=== PATIENT | male | born 1930 | race Caucasian/White ===

== ENCOUNTER 2017-06-13 17:07 | Inpatient (IN) | payer MEDICARE, OTHER ==
[2017-06-13] MEDS ORDERED: Furosemide 40 MG/4 ML VIAL IVPUSH ONE (18:29)
[2017-06-13] MEDS: Sodium Chloride 0.9% 10 ML Syringe FLUSH PRN (18:31)
[2017-06-13] MEDS: Albuterol/Ipratropium 3.0-0.5 MG/3 ML Neb Soln NEB ONE (19:05)
--- NOTE | 2017-06-13 19:10 | EDM.PDOC ---
ED HPI GENERAL MEDICAL PROBLEM - General Chief Complaint: Respiratory Problem Stated Complaint: SOB Time Seen by Provider: 06/13/17 17:27 Source of Information: Reports: Patient, EMS, Family History Limitations: Reports: Physical Impairment, Respiratory Distress - History of Present Illness INITIAL COMMENTS - FREE TEXT/NARRATIVE: 87 y.o.w.m with a h/o Asthma, CHF, came with his friend the the ed due to worsening of sob, especially in supine position. Pt take a water pills, he may have taken more fluid orally in the past few days. No CP. pt is feeling better in sitting position. He is able to talk 3 word sentences. No nausea, vomitting or other cute medical issues. Pt has a sedentary lifestyle. He is a poor historian. Onset: Gradual Onset Date: 06/12/17 Onset Time: 07:00 Duration: Hour(s):, Getting Worse, Intermittent Location: Reports: Chest Quality: Reports: Same as Previous Episode Severity: Moderate Improves with: Reports: Medication, Rest Worsens with: Reports: Movement Context: Reports: Exercise Associated Symptoms: Reports: Shortness of Breath, Weakness - Related Data Allergies Allergy/AdvReac Type Severity Reaction Status Date / Time influenza A (H1N1) virus Allergy Other Verified 06/13/17 17:27 vaccine m- [From influenza A (H1N1)] Penicillins Allergy Rash Verified 06/13/17 17:27 Home Meds: Home Meds Aspirin 325 mg PO DAILY 10/07/15 [History] Atenolol 50 mg PO DAILY 10/07/15 [History] Finasteride 5 mg PO DAILY 10/07/15 [History] Hydrochlorothiazide 25 mg PO DAILY 10/07/15 [History] Loratadine 10 mg PO DAILY 10/07/15 [History] Losartan [Cozaar] 100 mg PO DAILY 10/07/15 [History] [place]-3 Acid Ethyl Esters 1 gm PO DAILY 10/07/15 [History] Oxybutynin 5 mg PO TID PRN 10/07/15 [History] Simvastatin [Zocor] 40 mg PO BEDTIME 10/07/15 [History] Tamsulosin [Tamsulosin 24 Hr] 0.4 mg PO DAILY 10/07/15 [History] amLODIPine [Norvasc] 10 mg PO DAILY 10/07/15 [History] glipiZIDE [Glucotrol] 5 mg PO BID 10/07/15 [History] Ketorolac Tromethamine/Pf [Acuvail 0.45% Ophth Solution] 1 drop EYELF QID [History] Oxymetazoline [Afrin Original 0.05% Nasal [place]] 1 spray INH DAILY 06/13/17 [ History] diphenhydrAMINE [Benadryl] 50 mg PO DAILY 06/13/17 [History] Past Medical History Cardiovascular History: Reports: High Cholesterol, Hypertension Respiratory History: Reports: Asthma, SOB Genitourinary History: Reports: BPH, Urinary Incontinence Endocrine/Metabolic History: Reports: Diabetes, Type II Social & Family History - Family History Family Medical History: Noncontributory - Tobacco Use Smoking Status *Q: Former Smoker Used Tobacco, but Quit: Yes Month Tobacco Last Used: unknown Second Hand Smoke Exposure: No - Recreational Drug Use Recreational Drug Use: No ED ROS GENERAL - Review of Systems Review Of Systems: See Below Constitutional: Reports: Weakness HEENT: Reports: No Symptoms Respiratory: Reports: Shortness of Breath, Wheezing Cardiovascular: Reports: Dyspnea on Exertion, Orthopnea, Palpitations Endocrine: Reports: No Symptoms GI/Abdominal: Reports: No Symptoms : Reports: No Symptoms Musculoskeletal: Reports: Muscle Pain Skin: Reports: No Symptoms Neurological: Reports: No Symptoms Psychiatric: Reports: No Symptoms Hematologic/Lymphatic: Reports: No Symptoms Immunologic: Reports: No Symptoms ED EXAM, GENERAL - Physical Exam Exam: See Below Exam Limited By: Respiratory Distress General Appearance: Alert, WD/WN, Moderate Distress, Obese Eye Exam: Bilateral Eye: Normal Inspection Ears: Normal External Exam Ear Exam: Bilateral Ear: Auricle Normal Nose: Normal Inspection, Normal Mucosa Throat/Mouth: Normal Inspection, No Airway Compromise Head: Atraumatic, Normocephalic Neck: Normal Inspection, Supple, Non-Tender, Full Range of Motion Respiratory/Chest: Respiratory Distress, Decreased Breath Sounds, Crackles, Wheezing, Prolonged Expiration Cardiovascular: Normal Peripheral Pulses EKG INTERPRETATION EKG Date: 06/13/17 Time: 21:02 Rhythm: Other (ventricular paced rhythm) Rate (Beats/Min): 61 [place]: LAD-Left [place] Deviation P-Wave: Absent QRS: LBBB ST-T: Normal QT: Normal Comparison: NA - No Prior EKG Course - Vital Signs Text/Narrative:: 87 y.o.w.m with a h/o Asthma, CHF, came with his friend the the ed due to worsening of sob, especially in supine position. Pulse ox was 84% on RA. Pt take a water pills, he may have taken more fluid orally in the past few days. No CP. pt is feeling better in sitting position. He is able to talk 3 word sentences. No nausea, vomitting or other cute medical issues. Pt has a sedentary lifestyle. He is a poor historian. PE: Obese, in SOB, chronic leg edema, exp wheezes. Pulse ox 84% on RA, orthopnea. pale Imaging: CXR: CHF, kurley B lines ECG: Ventricular paced rhythm. Labs: Troponin 0.02, BNP 551, Cr. 1.5 D Dimer 552 Na 126 K 5.3, Cr 1.3 BUN 39 INR 1.09 Impression: CHF, Chronic legedema. Morbid obese, Asthma, Hyponatremia, Hyperkalemia, Orthopnea, Hpoxemaia, DNR/DNI Tx: Lasix. Duoneb, O2 by NC Reexam: Improved. D Dimer was up, mildly. ECG did not show S1Q3 T3 HR was nl. Anesthesia was only able to put a G 24 i.v. in his lefts thump. CTA was put on hold. Consultation: Cristina accepted the pt for admission to M/S tele Last Recorded V/S: Last Vital Signs Temp 36.7 C 06/13/17 20:30 Pulse 60 06/13/17 18:48 Resp 19 06/13/17 20:30 BP 108/54 L 06/13/17 20:30 Pulse Ox 94 L 06/13/17 20:30 - Orders/Labs/Meds Orders: Active Orders 24 hr Category Date Time Status RT Aerosol Therapy [RC] ASDIRECTED Care 06/13/17 19:00 Active CXR [Chest 1V Frontal] [CR] Stat Exams 06/13/17 17:18 Taken Sodium Chloride 0.9% [Saline Flush] Med 06/13/17 18:30 Active 10 ml FLUSH ASDIRECTED PRN Saline Lock Insert [OM.PC] Routine Oth 06/13/17 18:30 Ordered EKG 12 Lead [EK] Routine Ther 06/13/17 17:21 Ordered Medication Orders Enoxaparin Sodium (Lovenox) 40 mg SUBCUT DAILY COLT Ondansetron HCl (Zofran) 4 mg IV Q4H PRN PRN Reason: Nausea/Vomiting Sodium Chloride (Saline Flush) 10 ml FLUSH ASDIRECTED PRN PRN Reason: Keep Vein Open Last Admin: 06/13/17 18:31 Dose: 10 ml Labs: Laboratory Tests 06/13/17 06/13/17 06/13/17 Range/Units 18:30 18:30 18:30 WBC 13.7 H (4.5-12.0) X10-3/uL RBC 4.09 L (4.30-5.75) x10(6)uL Hgb 11.9 (11.5-15.5) g/dL Hct 36.0 (30.0-51.3) % MCV 88.0 (80-96) fL MCH 29.2 (27.7-33.6) pg MCHC 33.2 (32.2-35.4) g/dL RDW 14.1 (11.5-15.5) % Plt Count 122 L (125-369) X10(3)uL MPV 9.6 (7.4-10.4) fL Neut % (Auto) 87.2 H (46-82) % Lymph % (Auto) 5.4 L (13-37) % [place] % (Auto) 5.9 (4-12) % Eos % (Auto) 0 L (1.0-5.0) % Baso % (Auto) 1 (0-2) % Neut # (Auto) 12.0 H (1.6-8.3) # Lymph # (Auto) 0.7 (0.6-5.0) # [place] # (Auto) 0.8 (0.0-1.3) # Eos # (Auto) 0.0 (0.0-0.8) # Baso # (Auto) 0.2 (0.0-0.2) # PT (8.7-11.1) INR (0.89-1.13) D-Dimer, Quantitative (100-400) ng/mL Sodium 126 L D (135-145) mmol/L Potassium 5.3 D (3.5-5.3) mmol/L Chloride 95 L D (100-110) mmol/L Carbon Dioxide 21 L (23-29) mmol/L BUN 39 H D (8-23) mg/dL Creatinine 1.3 (0.6-1.3) mg/dL Est Cr Clr Drug Dosing 36.72 mL/min Estimated GFR (MDRD) 52 L (>60) BUN/Creatinine Ratio 30.0 H (9-20) Glucose 303 H (80-116) mg/dL Calcium 8.4 L (8.6-10.2) mg/dL Troponin I (0.02-0.06) NG/ML B-Natriuretic Peptide 551 H (0-100) pg/mL 06/13/17 06/13/17 06/13/17 Range/Units 18:30 18:30 19:50 WBC (4.5-12.0) X10-3/uL RBC (4.30-5.75) x10(6)uL Hgb (11.5-15.5) g/dL Hct (30.0-51.3) % MCV (80-96) fL MCH (27.7-33.6) pg MCHC (32.2-35.4) g/dL RDW (11.5-15.5) % Plt Count (125-369) X10(3)uL MPV (7.4-10.4) fL Neut % (Auto) (46-82) % Lymph % (Auto) (13-37) % [place] % (Auto) (4-12) % Eos % (Auto) (1.0-5.0) % Baso % (Auto) (0-2) % Neut # (Auto) (1.6-8.3) # Lymph # (Auto) (0.6-5.0) # [place] # (Auto) (0.0-1.3) # Eos # (Auto) (0.0-0.8) # Baso # (Auto) (0.0-0.2) # PT 11.0 (8.7-11.1) INR 1.09 (0.89-1.13) D-Dimer, Quantitative 532 H (100-400) ng/mL Sodium (135-145) mmol/L Potassium (3.5-5.3) mmol/L Chloride (100-110) mmol/L Carbon Dioxide (23-29) mmol/L BUN (8-23) mg/dL Creatinine (0.6-1.3) mg/dL Est Cr Clr Drug Dosing mL/min Estimated GFR (MDRD) (>60) BUN/Creatinine Ratio (9-20) Glucose (80-116) mg/dL Calcium (8.6-10.2) mg/dL Troponin I 0.02 (0.02-0.06) NG/ML B-Natriuretic Peptide (0-100) pg/mL Meds: Medications Generic Name Dose Route Start Last Admin Trade Name Freq PRN Reason Stop Dose Admin Enoxaparin Sodium 40 mg 06/14/17 09:00 Lovenox SUBCUT DAILY COLT Ondansetron HCl 4 mg 06/13/17 19:54 Zofran IV Q4H PRN Nausea/Vomiting Sodium Chloride 10 ml 06/13/17 18:30 06/13/17 18:31 Saline Flush FLUSH 10 ml ASDIRECTED PRN Administration Keep Vein Open Discontinued Medications Generic Name Dose Route Start Last Admin Trade Name Freq PRN Reason Stop Dose Admin Albuterol/Ipratropium 3 ml 06/13/17 18:59 06/13/17 19:05 Duoneb 3.0-0.5 Mg/3 Ml NEB 06/13/17 19:00 3 ml ONETIME ONE Administration Furosemide 40 mg 06/13/17 18:29 06/13/17 18:34 Lasix IVPUSH 06/13/17 18:30 40 mg NOW ONE Administration Departure - Departure Time of Disposition: 21:03 Disposition: Refer to Observation Condition: Fair Clinical Impression: Asthma attack CHF (congestive heart failure) Qualifiers: Congestive heart failure type: combined Congestive heart failure chronicity: unspecified congestive heart failure chronicity Qualified Code(s): I50.40 - Unspecified combined systolic (congestive) and diastolic (congestive) heart failure - Discharge Information - My Orders Last 24 Hours: My Active Orders 06/13/17 17:18 CXR [Chest 1V Frontal] [CR] Stat 06/13/17 17:21 EKG 12 Lead [EK] Routine 06/13/17 18:30 Sodium Chloride 0.9% [Saline Flush] 10 ml FLUSH ASDIRECTED PRN Saline Lock Insert [OM.PC] Routine 06/13/17 19:00 RT Aerosol Therapy [RC] ASDIRECTED - Assessment/Plan Last 24 Hours: My Active Orders 06/13/17 17:18 CXR [Chest 1V Frontal] [CR] Stat 06/13/17 17:21 EKG 12 Lead [EK] Routine 06/13/17 18:30 Sodium Chloride 0.9% [Saline Flush] 10 ml FLUSH ASDIRECTED PRN Saline Lock Insert [OM.PC] Routine 06/13/17 19:00 RT Aerosol Therapy [RC] ASDIRECTED
--- NOTE | 2017-06-14 08:52 | PCM.HP ---
H&P History of Present Illness - General Date of Service: 06/14/17 Admit Problem/Dx: Admission Diagnosis/Problem Admission Diagnosis/Problem CHF, Congestive heart failure Source of Information: Patient, Family History Limitations: Reports: No Limitations - History of Present Illness Initial Comments - Free Text/Narative: 87-year-old pleasant who presented to the ER last night with shortness of breath for 2 days. The shortness of breath was insidious in onset, progressively getting worse, worsened by ambulation. Associated PND, and orthopnea. He said that he has a history of asthma which has been well- controlled and felt that it was getting worse. He also has a pacemaker, hypertension and type 2 diabetes previously stable. He goes [facility]. He denied chest pain fever chills or production of sputum. He further complained of leg swelling that is bilateral of the last few days Denies Pain Score (Numeric/FACES): 0 - Related Data Allergies/Adverse Reactions: Allergies Allergy/AdvReac Type Severity Reaction Status Date / Time influenza A (H1N1) virus Allergy Other Verified 06/13/17 17:27 vaccine m- [From influenza A (H1N1)] Penicillins Allergy Rash Verified 06/13/17 17:27 Home Medications: Home Meds Aspirin 325 mg PO DAILY 10/07/15 [History] Atenolol 50 mg PO DAILY 10/07/15 [History] Finasteride 5 mg PO DAILY 10/07/15 [History] Hydrochlorothiazide 25 mg PO DAILY 10/07/15 [History] Loratadine 10 mg PO DAILY 10/07/15 [History] Losartan [Cozaar] 100 mg PO DAILY 10/07/15 [History] [place]-3 Acid Ethyl Esters 1 gm PO DAILY 10/07/15 [History] Oxybutynin 5 mg PO TID PRN 10/07/15 [History] Simvastatin [Zocor] 40 mg PO BEDTIME 10/07/15 [History] Tamsulosin [Tamsulosin 24 Hr] 0.4 mg PO DAILY 10/07/15 [History] amLODIPine [Norvasc] 10 mg PO DAILY 10/07/15 [History] glipiZIDE [Glucotrol] 5 mg PO BID 10/07/15 [History] Ketorolac Tromethamine/Pf [Acuvail 0.45% Ophth Solution] 1 drop EYELF QID [History] Oxymetazoline [Afrin Original 0.05% Nasal [place]] 1 spray INH DAILY 06/13/17 [ History] diphenhydrAMINE [Benadryl] 50 mg PO DAILY 06/13/17 [History] Past Medical History HEENT History: Reports: Cataract, Impaired Vision Other HEENT History: wears glasses 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 Cardiovascular History: Reports: High Cholesterol, Hypertension Respiratory History: Reports: Asthma, SOB Genitourinary History: Reports: BPH, Urinary Incontinence Endocrine/Metabolic History: Reports: Diabetes, Type II - Infectious Disease History Infectious Disease History: Reports: Chicken Pox, Measles, Mumps - Past Surgical History Cardiovascular Surgical History: Reports: Pacer GI Surgical History: Reports: Hernia Repair/Other Social & Family History - Family History Family Medical History: Noncontributory - Tobacco Use Smoking Status *Q: Former Smoker Years of Tobacco use: 1 Used Tobacco, but Quit: Yes Month Tobacco Last Used: unknown Second Hand Smoke Exposure: No - Caffeine Use Caffeine Use: Reports: Coffee Caffeine Use Comment: 1-2 cups coffee in am - Recreational Drug Use Recreational Drug Use: No H&P Review of Systems - Review of Systems: Review Of Systems: ROS reveals no pertinent complaints other than HPI. Exam - Exam Exam: See Below - Vital Signs Vital Signs: Last Vital Signs Temp 98 F 06/14/17 01:30 Pulse 60 06/13/17 18:48 Resp 19 06/14/17 01:30 BP 93/39 L 06/14/17 01:30 Pulse Ox 93 L 06/14/17 01:30 Weight: 120.293 kg - Exam Quality Assessment: Supplemental Oxygen General: Alert, Oriented, 4 HEENT: PERRLA, Hearing Intact, Mucosa Moist & [place], Nares Patent, Normal Nasal Septum, Posterior Pharynx Clear, Conjunctiva Clear, EOMI, EACs Clear, TMs Clear Neck: Supple, Trachea Midline, 2 Lungs: Crackles, Rhonchi Cardiovascular: Irregular Rhythm GI/Abdominal Exam: Normal Bowel Sounds, Soft, Non-Tender, No Organomegaly, No Distention, No Abnormal Bruit, No Mass, Pelvis Stable (Male) Exam: Deferred Rectal (Males) Exam: Deferred Back Exam: Normal Inspection, Full Range of Motion, NT Extremities: Pedal Edema. No: No Pedal Edema Skin: Warm, Dry, Intact Neurological: Cranial Nerves Intact, Reflexes Equal Bilateral Neuro Extensive - Mental Status: Alert, Oriented x3, Normal Mood/Affect, Normal Cognition Neuro Extensive - Motor, Sensory, Reflexes: CN II-XII Intact, Normal Gait, Normal Reflexes Psychiatric: Alert, Normal Affect, Normal Mood - Patient Data Lab Results Last 24 hrs: Laboratory Results - last 24 hr 06/14/17 06/14/17 Range/Units 06:47 06:47 Troponin I 0.02 (0.02-0.06) NG/ML B-Natriuretic Peptide 577 H (0-100) pg/mL Result Diagrams: 06/13/17 18:30 06/13/17 18:30 Imaging Impressions Last 24 hrs: CXR-CHF EKG INTERPRETATION EKG Date: 06/13/17 Comparison: NA - No Prior EKG *Q Meaningful Use (ADM) - VTE *Q VTE Criteria *Q: - Stroke *Q Stroke Criteria *Q: - AMI *Q AMI Criteria *Q: - Problem List (1) CHF (congestive heart failure) SNOMED Code(s): 19799450 ICD Code: I50.9 - HEART FAILURE, UNSPECIFIED Status: Acute Current Visit : Yes Qualifiers: Congestive heart failure type: combined Congestive heart failure chronicity : unspecified congestive heart failure chronicity Qualified Code(s): I50.40 - Unspecified combined systolic (congestive) and diastolic (congestive) heart failure (2) HTN (hypertension) SNOMED Code(s): 47471845 ICD Code: I10 - ESSENTIAL (PRIMARY) HYPERTENSION Status: Acute Current Visit: Yes Qualifiers: Hypertension type: essential hypertension Qualified Code(s): I10 - Essential (primary) hypertension (3) Diabetes type 2, controlled SNOMED Code(s): 72871422 ICD Code: E11.9 - TYPE 2 DIABETES MELLITUS WITHOUT COMPLICATIONS Status: Acute Current Visit: Yes Qualifiers: Diabetes mellitus complication status: with unspecified complications Diabetes mellitus terminal block assembler insulin use: unspecified terminal block assembler insulin use status Qualified Code(s): E11.8 - Type 2 diabetes mellitus with unspecified complications (4) Obesity SNOMED Code(s): 336381309 ICD Code: E66.9 - OBESITY, UNSPECIFIED Status: Chronic Current Visit: Yes Qualifiers: Obesity type: due to excess calories (5) Hyponatremia SNOMED Code(s): 70758469 ICD Code: E87.1 - HYPO-OSMOLALITY AND HYPONATREMIA Status: Acute Current Visit: Yes (6) History of permanent cardiac pacemaker placement SNOMED Code(s): 843133812 ICD Code: Z95.0 - PRESENCE OF CARDIAC PACEMAKER Status: Acute Current Visit: Yes (7) Asthma SNOMED Code(s): 240940885 ICD Code: J45.909 - UNSPECIFIED ASTHMA, UNCOMPLICATED Status: Acute Current Visit: Yes Qualifiers: Asthma complication type: uncomplicated (8) Palliative care status SNOMED Code(s): 689797188 ICD Code: Z51.5 - ENCOUNTER FOR PALLIATIVE CARE Status: Acute Current Visit: Yes Problem List Initiated/Reviewed/Updated: Yes Orders Last 24hrs: Active Orders 24 hr Category Date Time Status Oxygen Therapy Adult [Oxygen Therapy] [RC] ASDIRECTED Care 06/13/17 20:30 Active Telemetry Monitoring [Cardiac Monitoring] [] 08,16,00 Care 06/13/17 20:19 Active Medication Orders Enoxaparin Sodium (Lovenox) 30 mg SUBCUT DAILY COLT Ondansetron HCl (Zofran) 4 mg IV Q4H PRN PRN Reason: Nausea/Vomiting Sodium Chloride (Saline Flush) 10 ml FLUSH ASDIRECTED PRN PRN Reason: Keep Vein Open Last Admin: 06/13/17 18:31 Dose: 10 ml Assessment/Plan Comment:: Andi has CHF. He states x-ray shows bilateral interstitial infiltrates, suggestive of pulmonary edema. I will continue with IV Lasix twice a day, watching his blood pressure. I'll transfer him to inpatient care but discontinue telemetry. I've recommended a strict input and output and daily weights. I will also consulted physical and occupational therapy for strengthening, ADLs, and discharge planning. I will withheld his blood pressure medications because of his low blood pressure. Also of the quested records from the [facility] to see his previous history in detail.
[2017-06-14] MEDS ORDERED: Oxybutynin 5 MG Tab PO PRN ×2 (08:55→11:15)
[2017-06-14] MEDS ORDERED: Furosemide 20 MG Tab PO SCH (09:00)
[2017-06-14] MEDS ORDERED: Oxymetazoline 0.05% Nasal Spray 15 ML Bottle NASBOTH PRN (09:00)
--- NOTE | 2017-06-14 11:26 | CR ---
INDICATION: Short of breath. CHEST: An AP upright view of the chest was obtained 06/13/2017 and compared with 10/07/2015, revealing very poor inspiration which markedly emphasizes markings. It is impossible to exclude bibasilar pneumonia with this appearance. A full inspiration examination, either AP or preferably, PA, preferably with a lateral view, should be of further diagnostic benefit. Bipolar pacemaker leads are noted in place now, with the heart appearing enlarged, but not well seen. Overlying EKG leads are noted. Lungs appear to be hyperaerated. IMPRESSION: Inadequate examination. Need full inspiration examination, preferably with a lateral view for further evaluation when clinically possible. MTDD
[2017-06-14] MEDS: Finasteride 5 MG Tab PO SCH (12:01)
[2017-06-14] MEDS: Loratadine 10 MG Tab PO SCH (12:01)
[2017-06-14] MEDS: Enoxaparin 30 MG/0.3 ML Syringe SUBCUT SCH (12:01)
[2017-06-14] MEDS: glipiZIDE 5 MG Tab PO SCH ×2 (12:01→17:30)
[2017-06-14] MEDS: Spironolactone 25 MG Tab PO SCH ×2 (12:02→20:25)
[2017-06-14] MEDS: Furosemide 20 MG/2 ML VIAL IVPUSH SCH ×2 (12:02→16:18)
[2017-06-14] MEDS: Aspirin 81 MG Tab.EC PO SCH (12:02)
[2017-06-14] MEDS: Fish Oil/Omega-3 Fatty Acids 1 Gm Cap PO SCH (12:02)
[2017-06-14] MEDS: Oxybutynin 5 MG Tab PO SCH ×2 (12:02→20:25)
[2017-06-14] MEDS: KETOROLAC 0.4% EYELF SCH ×3 (13:33→20:25)
[2017-06-14] MEDS: Tamsulosin 0.4 MG Cap.ER PO SCH (19:09)
[2017-06-14] MEDS: Simvastatin 40 MG Tab PO SCH (20:25)
[2017-06-15] MEDS: glipiZIDE 5 MG Tab PO SCH ×2 (08:19→17:18)
[2017-06-15] MEDS: Spironolactone 25 MG Tab PO SCH ×2 (08:20→20:00)
[2017-06-15] MEDS: Furosemide 20 MG/2 ML VIAL IVPUSH SCH ×2 (08:20→14:43)
[2017-06-15] MEDS: Loratadine 10 MG Tab PO SCH (08:20)
[2017-06-15] MEDS: Sodium Chloride 0.9% 10 ML Syringe FLUSH PRN ×2 (08:20→14:43)
[2017-06-15] MEDS: Fish Oil/Omega-3 Fatty Acids 1 Gm Cap PO SCH (08:21)
[2017-06-15] MEDS: KETOROLAC 0.4% EYELF SCH ×4 (08:21→20:01)
[2017-06-15] MEDS: Aspirin 81 MG Tab.EC PO SCH (08:21)
[2017-06-15] MEDS: Enoxaparin 30 MG/0.3 ML Syringe SUBCUT SCH (08:22)
[2017-06-15] MEDS: Finasteride 5 MG Tab PO SCH (08:22)
[2017-06-15] MEDS: Oxybutynin 5 MG Tab PO SCH ×2 (08:22→20:00)
--- NOTE | 2017-06-15 09:21 | PCM.PN ---
- General Info Date of Service: 06/15/17 Admission Dx/Problem (Free Text): Admission Diagnosis/Problem Admission Diagnosis/Problem CHF, Congestive heart failure Subjective Update: Overnight patient has somewhat improved. He still gets short of breath on mild ambulation and on speaking. He denies chest pain no fever or chills no headache no cough. - Review of Systems General: Reports: No Symptoms HEENT: Reports: No Symptoms Pulmonary: Reports: Shortness of Breath. Denies: Pleuritic Chest Pain, Cough, Sputum Cardiovascular: Reports: Dyspnea on Exertion, Edema Gastrointestinal: Reports: No Symptoms Genitourinary: Reports: No Symptoms - Patient Data Vitals - Most Recent: Last Vital Signs Temp 98 F 06/15/17 04:30 Pulse 88 06/15/17 07:22 Resp 20 06/15/17 04:30 BP 137/54 L 06/15/17 04:30 Pulse Ox 95 06/15/17 07:22 Weight - Most Recent: 119.567 kg I&O - Last 24 Hours: Intake & Output 06/14/17 06/15/17 06/15/17 22:59 06:59 14:59 Intake Total 980 300 Output Total 1050 675 Balance -70 -375 Lab Results Last 24 Hours: Laboratory Results - last 24 hr 06/14/17 06/15/17 06/15/17 Range/Units 17:03 06:55 06:55 WBC 10.8 (4.5-12.0) X10-3/uL RBC 4.37 (4.30-5.75) x10(6)uL Hgb 12.9 (11.5-15.5) g/dL Hct 37.9 (30.0-51.3) % MCV 86.8 (80-96) fL MCH 29.5 (27.7-33.6) pg MCHC 34.0 (32.2-35.4) g/dL RDW 13.6 (11.5-15.5) % Plt Count 195 (125-369) X10(3)uL MPV 8.2 (7.4-10.4) fL Neut % (Auto) 67.1 (46-82) % Lymph % (Auto) 16.9 (13-37) % [place] % (Auto) 10.7 (4-12) % Eos % (Auto) 5 (1.0-5.0) % Baso % (Auto) 0 (0-2) % Neut # (Auto) 7.3 (1.6-8.3) # Lymph # (Auto) 1.8 (0.6-5.0) # [place] # (Auto) 1.2 (0.0-1.3) # Eos # (Auto) 0.5 (0.0-0.8) # Baso # (Auto) 0.0 (0.0-0.2) # Sodium 129 L (135-145) mmol/L Potassium 3.8 D (3.5-5.3) mmol/L Chloride 95 L (100-110) mmol/L Carbon Dioxide 24 (23-29) mmol/L BUN 48 H (8-23) mg/dL Creatinine 1.5 H (0.6-1.3) mg/dL Est Cr Clr Drug Dosing 31.83 mL/min Estimated GFR (MDRD) 44 L (>60) BUN/Creatinine Ratio 32.0 H (9-20) Glucose 149 H D (80-116) mg/dL POC Glucose 149 H (80-116) mg/dL Calcium 8.6 (8.6-10.2) mg/dL Phosphorus 3.5 (3.0-4.6) mg/dL Magnesium 1.9 (1.8-2.5) mg/dL Total Bilirubin 0.8 (0.1-1.3) mg/dL AST 21 (5-27) IU/L ALT 21 (14-26) IU/L Alkaline Phosphatase 83 (56-112) IU/L Total Protein 6.9 (6.0-8.0) g/dL Albumin 3.0 L (3.2-4.6) g/dL Globulin 3.9 g/dL Albumin/Globulin Ratio 0.8 Med Orders - Current: Current Medications Albuterol/Ipratropium (Duoneb 3.0-0.5 Mg/3 Ml) 3 ml NEB QIDRT [facility] Aspirin (Halfprin) 81 mg PO DAILY [facility] Last Admin: 06/15/17 08:21 Dose: 81 mg Enoxaparin Sodium (Lovenox) 30 mg SUBCUT DAILY [facility] Last Admin: 06/15/17 08:22 Dose: 30 mg Finasteride (Proscar) 5 mg PO DAILY [facility] Last Admin: 06/15/17 08:22 Dose: 5 mg Fish Oil (Fish Oil) 1 gm PO DAILY [facility] Last Admin: 06/15/17 08:21 Dose: 1 gm Furosemide (Lasix) 20 mg IVPUSH BIDDIURETIC [facility] Last Admin: 06/15/17 08:20 Dose: 20 mg Glipizide (Glucotrol) 5 mg PO BIDMEALS [facility] Last Admin: 06/15/17 08:19 Dose: 5 mg Loratadine (Claritin) 10 mg PO DAILY [facility] Last Admin: 06/15/17 08:20 Dose: 10 mg Ketorolac 0.4% Ophthalmic Solution *Ptom 1 drop EYELF QID [facility] Last Admin: 06/15/17 08:21 Dose: 1 drop Ondansetron HCl (Zofran) 4 mg IV Q4H PRN PRN Reason: Nausea/Vomiting Oxybutynin Chloride (Oxybutynin) 5 mg PO BID [facility] Last Admin: 06/15/17 08:22 Dose: 5 mg Oxybutynin Chloride (Oxybutynin) 5 mg PO DAILY PRN PRN Reason: BLADDER SPASMS Oxymetazoline HCl (Afrin Original 0.05% Nasal [place]) 0 ml NASBOTH Q12H PRN PRN Reason: CONGESTION Potassium Chloride (Klor-Con M20) 20 meq PO BEDTIME [facility] Simvastatin (Zocor) 40 mg PO BEDTIME [facility] Last Admin: 06/14/17 20:25 Dose: 40 mg Sodium Chloride (Saline Flush) 10 ml FLUSH ASDIRECTED PRN PRN Reason: Keep Vein Open Last Admin: 06/15/17 08:20 Dose: 10 ml Spironolactone (Aldactone) 25 mg PO BID [facility] Tamsulosin HCl (Flomax) 0.4 mg PO PCDINNER [facility] Last Admin: 06/14/17 19:09 Dose: 0.4 mg Discontinued Medications Albuterol/Ipratropium (Duoneb 3.0-0.5 Mg/3 Ml) 3 ml NEB ONETIME ONE Stop: 06/13/17 19:00 Last Admin: 06/13/17 19:05 Dose: 3 ml Furosemide (Lasix) 40 mg IVPUSH NOW ONE Stop: 06/13/17 18:30 Last Admin: 06/13/17 18:34 Dose: 40 mg Furosemide (Lasix) 20 mg PO BIDDIURETIC [facility] Last Admin: 06/14/17 12:14 Dose: Not Given Oxybutynin Chloride (Oxybutynin) 5 mg PO TID PRN PRN Reason: BLADDER Spasms Spironolactone (Aldactone) 12.5 mg PO BID [facility] Last Admin: 06/15/17 08:20 Dose: 12.5 mg Spironolactone (Aldactone) 25 mg PO DAILY COLT - Exam Quality Assessment: No: Supplemental Oxygen General: Alert HEENT: Pupils Equal, Pupils Reactive, EOMI, Mucous Membr. Moist/[place] Neck: Supple Lungs: Rales, Rhonchi, Wheezing Cardiovascular: Regular Rate, Regular Rhythm Extremities: Pedal Edema - Problem List & Annotations (1) CHF (congestive heart failure) SNOMED Code(s): 66516941 Code(s): I50.9 - HEART FAILURE, UNSPECIFIED Status: Acute Current Visit: Yes Qualifiers: Congestive heart failure type: combined Congestive heart failure chronicity : unspecified congestive heart failure chronicity Qualified Code(s): I50.40 - Unspecified combined systolic (congestive) and diastolic (congestive) heart failure (2) HTN (hypertension) SNOMED Code(s): 29418736 Code(s): I10 - ESSENTIAL (PRIMARY) HYPERTENSION Status: Acute Current Visit: Yes Qualifiers: Hypertension type: essential hypertension Qualified Code(s): I10 - Essential (primary) hypertension (3) Diabetes type 2, controlled SNOMED Code(s): 94984047 Code(s): E11.9 - TYPE 2 DIABETES MELLITUS WITHOUT COMPLICATIONS Status: Acute Current Visit: Yes Qualifiers: Diabetes mellitus complication status: with unspecified complications Diabetes mellitus care home insulin use: unspecified terminal operations supervisor insulin use status Qualified Code(s): E11.8 - Type 2 diabetes mellitus with unspecified complications (4) Obesity SNOMED Code(s): 162272632 Code(s): E66.9 - OBESITY, UNSPECIFIED Status: Chronic Current Visit: Yes Qualifiers: Obesity type: due to excess calories (5) Hyponatremia SNOMED Code(s): 22799249 Code(s): E87.1 - HYPO-OSMOLALITY AND HYPONATREMIA Status: Acute Current Visit: Yes (6) History of permanent cardiac pacemaker placement SNOMED Code(s): 232524115 Code(s): Z95.0 - PRESENCE OF CARDIAC PACEMAKER Status: Acute Current Visit: Yes (7) Asthma SNOMED Code(s): 082227161 Code(s): J45.909 - UNSPECIFIED ASTHMA, UNCOMPLICATED Status: Acute Current Visit: Yes Qualifiers: Asthma complication type: uncomplicated (8) Palliative care status SNOMED Code(s): 454755505 Code(s): Z51.5 - ENCOUNTER FOR PALLIATIVE CARE Status: Acute Current Visit: Yes - Problem List Review Problem List Initiated/Reviewed/Updated: Yes - My Orders Last 24 Hours: My Active Orders 06/14/17 09:15 Furosemide [Lasix] 20 mg IVPUSH BIDDIURETIC 06/14/17 11:00 IS (RT) [RT Incentive Spirometry] [RC] ASDIRECTED 06/14/17 11:15 Oxybutynin 5 mg PO BID Oxybutynin 5 mg PO DAILY PRN 06/15/17 09:11 RT Aerosol Therapy [RC] ASDIRECTED CXR [Chest 2V] [CR] Routine 06/15/17 09:15 Albuterol/Ipratropium [DuoNeb 3.0-0.5 MG/3 ML] 3 ml NEB QIDRT 06/15/17 09:30 Potassium Chloride [Klor-Con M20] 20 meq PO BEDTIME Spironolactone [Aldactone] 25 mg PO BID Spironolactone [Aldactone] 25 mg PO DAILY 06/16/17 05:11 B-TYPE NATRIURETIC PEPTIDE,BNP [CHEM] AM BASIC METABOLIC PANEL,BMP [CHEM] AM - Plan Plan:: I ordered for repeat chest x-ray PA and lateral. Continued IV Lasix, increase the dose of Aldactone to 50 mg in 2 divided doses daily. I will replace potassium in anticipation of hypokalemia do to digresses. His weight has only gone down to a 3 pounds. I'll give him a one-time dose of Zaroxolyn. I will also started DuoNeb as needed to help open up his lungs. A 2-D echocardiogram will be ordered to be done until tomorrow. Once is off oxygen I believe that we can send him home.
[2017-06-15] MEDS ORDERED: Spironolactone 25 MG Tab PO SCH (09:30)
[2017-06-15] MEDS ORDERED: Spironolactone 25 MG Tab PO ONE (09:30)
[2017-06-15] MEDS: Albuterol/Ipratropium 3.0-0.5 MG/3 ML Neb Soln NEB SCH ×4 (10:17→20:01)
--- NOTE | 2017-06-15 11:46 | CR ---
INDICATION: Short of breath. CHEST: AP and lateral views of the chest 06/15/2017 were compared with 2016 AP, and PA and lateral from 10/07/2015. Pacemaker leads appear unchanged in position. The heart size is difficult to evaluate due to what appears to be a relatively poor inspiration, but does appear enlarged, possibly with left ventricular enlargement. Bridging hyperostotic changes are noted in the mid to lower thoracic spine. Diminished bone density is suggested, which may be on the basis of osteomalacia or osteoporosis and should be correlated clinically. Calcifications are noted in the arch of the aorta and descending aorta. Upper lung field pulmonary vasculature appears slightly prominent with interstitial markings also prominent, suggesting a mild degree of CHF and interstitial lung edema - correlate clinically, as other cause of pulmonary vascular congestion cannot be excluded. A definite active infiltrate or effusion was not identified. With the poor inspiration, it is impossible to exclude minimal patchy bronchopneumonia at the lung bases, however. IMPRESSION: Slight prominence of upper lung field pulmonary vasculature and interstitial markings raise question of a mild degree of CHF and interstitial lung edema - correlate clinically. MTDD
[2017-06-15] MEDS: Potassium Chloride 20 MEQ Tab.ER PO SCH (14:41)
[2017-06-15] MEDS: Tamsulosin 0.4 MG Cap.ER PO SCH (19:58)
[2017-06-15] MEDS: Simvastatin 40 MG Tab PO SCH (20:00)
[2017-06-16] MEDS: Albuterol/Ipratropium 3.0-0.5 MG/3 ML Neb Soln NEB SCH ×4 (07:23→20:40)
--- NOTE | 2017-06-16 08:44 | PCM.PN ---
- General Info Date of Service: 06/16/17 Admission Dx/Problem (Free Text): Admission Diagnosis/Problem Admission Diagnosis/Problem CHF, Congestive heart failure Subjective Update: Patient has improved in terms of shortness of breath and was able to walk 300 feet independently yesterday is off oxygenation. Wants to go home . - Review of Systems General: Reports: No Symptoms HEENT: Reports: No Symptoms Pulmonary: Reports: Shortness of Breath Cardiovascular: Reports: No Symptoms, Dyspnea on Exertion Gastrointestinal: Reports: No Symptoms Genitourinary: Reports: No Symptoms - Patient Data Vitals - Most Recent: Last Vital Signs Temp 97.6 F 06/16/17 00:00 Pulse 70 06/16/17 07:29 Resp 18 06/16/17 00:00 BP 115/55 L 06/16/17 00:00 Pulse Ox 92 L 06/16/17 07:30 Weight - Most Recent: 120.383 kg I&O - Last 24 Hours: Intake & Output 06/15/17 06/16/17 06/16/17 22:59 06:59 14:59 Intake Total 800 125 Output Total 400 Balance 400 125 Lab Results Last 24 Hours: Laboratory Results - last 24 hr 06/16/17 06/16/17 Range/Units 07:00 07:00 Sodium 130 L (135-145) mmol/L Potassium 4.3 (3.5-5.3) mmol/L Chloride 97 L (100-110) mmol/L Carbon Dioxide 21 L (23-29) mmol/L BUN 50 H (8-23) mg/dL Creatinine 1.7 H (0.6-1.3) mg/dL Est Cr Clr Drug Dosing 28.08 mL/min Estimated GFR (MDRD) 38 L (>60) BUN/Creatinine Ratio 29.4 H (9-20) Glucose 222 H (80-116) mg/dL Calcium 8.7 (8.6-10.2) mg/dL B-Natriuretic Peptide 195 H (0-100) pg/mL Med Orders - Current: Current Medications Albuterol/Ipratropium (Duoneb 3.0-0.5 Mg/3 Ml) 3 ml NEB QIDRT [facility] Last Admin: 06/16/17 07:23 Dose: 3 ml Aspirin (Halfprin) 81 mg PO DAILY [facility] Last Admin: 06/15/17 08:21 Dose: 81 mg Enoxaparin Sodium (Lovenox) 30 mg SUBCUT DAILY [facility] Last Admin: 06/15/17 08:22 Dose: 30 mg Finasteride (Proscar) 5 mg PO DAILY [facility] Last Admin: 06/15/17 08:22 Dose: 5 mg Fish Oil (Fish Oil) 1 gm PO DAILY [facility] Last Admin: 06/15/17 08:21 Dose: 1 gm Furosemide (Lasix) 20 mg IVPUSH BIDDIURETIC [facility] Last Admin: 06/15/17 14:43 Dose: 20 mg Glipizide (Glucotrol) 5 mg PO BIDMEALS [facility] Last Admin: 06/15/17 17:18 Dose: 5 mg Loratadine (Claritin) 10 mg PO DAILY [facility] Last Admin: 06/15/17 08:20 Dose: 10 mg Ketorolac 0.4% Ophthalmic Solution *Ptom 1 drop EYELF QID [facility] Last Admin: 06/15/17 20:01 Dose: 1 drop Ondansetron HCl (Zofran) 4 mg IV Q4H PRN PRN Reason: Nausea/Vomiting Oxybutynin Chloride (Oxybutynin) 5 mg PO BID [facility] Last Admin: 06/15/17 20:00 Dose: 5 mg Oxybutynin Chloride (Oxybutynin) 5 mg PO DAILY PRN PRN Reason: BLADDER SPASMS Oxymetazoline HCl (Afrin Original 0.05% Nasal [place]) 0 ml NASBOTH Q12H PRN PRN Reason: CONGESTION Potassium Chloride (Klor-Con M20) 20 meq PO BEDTIME [facility] Last Admin: 06/15/17 14:41 Dose: 20 meq Simvastatin (Zocor) 40 mg PO BEDTIME [facility] Last Admin: 06/15/17 20:00 Dose: 40 mg Sodium Chloride (Saline Flush) 10 ml FLUSH ASDIRECTED PRN PRN Reason: Keep Vein Open Last Admin: 06/15/17 14:43 Dose: 10 ml Spironolactone (Aldactone) 25 mg PO BID [facility] Last Admin: 06/15/17 20:00 Dose: 25 mg Tamsulosin HCl (Flomax) 0.4 mg PO PCDINNER [facility] Last Admin: 06/15/17 19:58 Dose: 0.4 mg Discontinued Medications Albuterol/Ipratropium (Duoneb 3.0-0.5 Mg/3 Ml) 3 ml NEB ONETIME ONE Stop: 06/13/17 19:00 Last Admin: 06/13/17 19:05 Dose: 3 ml Furosemide (Lasix) 40 mg IVPUSH NOW ONE Stop: 06/13/17 18:30 Last Admin: 06/13/17 18:34 Dose: 40 mg Furosemide (Lasix) 20 mg PO BIDDIURETIC COLT Last Admin: 06/14/17 12:14 Dose: Not Given Oxybutynin Chloride (Oxybutynin) 5 mg PO TID PRN PRN Reason: BLADDER Spasms Spironolactone (Aldactone) 12.5 mg PO BID COLT Last Admin: 06/15/17 08:20 Dose: 12.5 mg Spironolactone (Aldactone) 25 mg PO DAILY COLT Spironolactone (Aldactone) 12.5 mg PO ONETIME ONE Stop: 06/15/17 09:31 Last Admin: 06/15/17 14:37 Dose: 12.5 mg - Exam Quality Assessment: No: Supplemental Oxygen General: Alert, Oriented HEENT: Pupils Equal Neck: Supple Lungs: Clear to Auscultation Cardiovascular: Regular Rate Psy/Mental Status: Alert, Normal Affect - Problem List & Annotations (1) CHF (congestive heart failure) SNOMED Code(s): 53246022 Code(s): I50.9 - HEART FAILURE, UNSPECIFIED Status: Acute Current Visit: Yes Qualifiers: Congestive heart failure type: combined Congestive heart failure chronicity : unspecified congestive heart failure chronicity Qualified Code(s): I50.40 - Unspecified combined systolic (congestive) and diastolic (congestive) heart failure (2) HTN (hypertension) SNOMED Code(s): 84867072 Code(s): I10 - ESSENTIAL (PRIMARY) HYPERTENSION Status: Acute Current Visit: Yes Qualifiers: Hypertension type: essential hypertension Qualified Code(s): I10 - Essential (primary) hypertension (3) Diabetes type 2, controlled SNOMED Code(s): 21348301 Code(s): E11.9 - TYPE 2 DIABETES MELLITUS WITHOUT COMPLICATIONS Status: Acute Current Visit: Yes Qualifiers: Diabetes mellitus complication status: with unspecified complications Diabetes mellitus half-way insulin use: unspecified intermediate frame tender insulin use status Qualified Code(s): E11.8 - Type 2 diabetes mellitus with unspecified complications (4) Obesity SNOMED Code(s): 542174802 Code(s): E66.9 - OBESITY, UNSPECIFIED Status: Chronic Current Visit: Yes Qualifiers: Obesity type: due to excess calories (5) Hyponatremia SNOMED Code(s): 85138579 Code(s): E87.1 - HYPO-OSMOLALITY AND HYPONATREMIA Status: Acute Current Visit: Yes (6) History of permanent cardiac pacemaker placement SNOMED Code(s): 868889973 Code(s): Z95.0 - PRESENCE OF CARDIAC PACEMAKER Status: Acute Current Visit: Yes (7) Asthma SNOMED Code(s): 070089916 Code(s): J45.909 - UNSPECIFIED ASTHMA, UNCOMPLICATED Status: Acute Current Visit: Yes Qualifiers: Asthma complication type: uncomplicated (8) Palliative care status SNOMED Code(s): 888945369 Code(s): Z51.5 - ENCOUNTER FOR PALLIATIVE CARE Status: Acute Current Visit: Yes (9) KETURAH (acute kidney injury) SNOMED Code(s): 81996039 Code(s): N17.9 - ACUTE KIDNEY FAILURE, UNSPECIFIED Status: Acute Current Visit: Yes - Problem List Review Problem List Initiated/Reviewed/Updated: Yes - My Orders Last 24 Hours: My Active Orders 06/15/17 09:11 RT Aerosol Therapy [RC] ASDIRECTED 06/15/17 09:15 Albuterol/Ipratropium [DuoNeb 3.0-0.5 MG/3 ML] 3 ml NEB QIDRT 06/15/17 09:30 Potassium Chloride [Klor-Con M20] 20 meq PO BEDTIME 06/15/17 21:00 Spironolactone [Aldactone] 25 mg PO BID 06/16/17 07:00 Echo Comp wo Cont [US] Routine - Plan Plan:: A repeat chest x-ray looks much better than the one when he came in. Yesterday significantly improved. His creatinine however has gone upwards to 1.7. I believe this is due to diuresis. BNP has improved to 157. I will discharge him home today, on a small dose of Lasix and Aldactone.
[2017-06-16] MEDS: Sodium Chloride 0.9% 10 ML Syringe FLUSH PRN ×2 (09:24→13:37)
[2017-06-16] MEDS: glipiZIDE 5 MG Tab PO SCH ×2 (09:24→18:05)
[2017-06-16] MEDS: Furosemide 20 MG/2 ML VIAL IVPUSH SCH ×2 (09:24→13:37)
[2017-06-16] MEDS: Spironolactone 25 MG Tab PO SCH ×2 (09:25→20:38)
[2017-06-16] MEDS: Loratadine 10 MG Tab PO SCH (09:26)
[2017-06-16] MEDS: Aspirin 81 MG Tab.EC PO SCH (09:27)
[2017-06-16] MEDS: Fish Oil/Omega-3 Fatty Acids 1 Gm Cap PO SCH (09:27)
[2017-06-16] MEDS: KETOROLAC 0.4% EYELF SCH ×4 (09:27→20:38)
[2017-06-16] MEDS: Finasteride 5 MG Tab PO SCH (09:28)
[2017-06-16] MEDS: Oxybutynin 5 MG Tab PO SCH ×2 (09:28→20:39)
[2017-06-16] MEDS: Enoxaparin 30 MG/0.3 ML Syringe SUBCUT SCH (09:28)
--- NOTE | 2017-06-16 10:17 | PN ---
DATE SEEN: 06/16/2017 ADDENDUM: The patient tried to lie down for an echocardiogram, but choked on the water and felt extremely short of breath. He started to cough and became short of breath. The family was concerned about taking him home in this condition and when I examined him, he appeared in mild to moderate respiratory distress. He had some crackles in the base of the lungs and some wheezing. They are also concerned about the edema that is ongoing. He has only lost 2 pounds since admission. For such, I withheld the discharge that was earlier completed, and we will continue with his current medications along with DuoNeb and Lasix IV. I will repeat a CMP in the morning. /[id number] CLAUDIO/DULCE
[2017-06-16] MEDS: Tamsulosin 0.4 MG Cap.ER PO SCH (18:05)
--- NOTE | 2017-06-16 18:49 | DISCH ---
DISCHARGE DATE: 06/16/2017 REASON FOR ADMISSION: 1. Congestive heart failure. 2. History of asthma. 3. Benign prostatic hypertrophy. 4. Hypertension. 5. Obesity. 6. Type 2 diabetes. DISCHARGE DIAGNOSES: 1. Congestive heart failure. 2. History of asthma. 3. Benign prostatic hypertrophy. 4. Hypertension. 5. Obesity. 6. Type 2 diabetes. CONSULTATIONS: Physical and Occupational therapy. BRIEF HISTORY AND HOSPITAL COURSE: Andi is an 87-year-old who presented to the ER with two days of shortness of breath. He was found to be in CHF based on his BNP and chest x-ray and he also had edema. He was treated with IV Lasix. Blood pressure was low most of the times, going down to 100s and 90s systolic. As such, I held all his blood pressure medications. His kidney function also trended upwards, I believe due to diuresis or the CHF. He was off oxygen 24 hours prior to discharge, and he did well with physical therapy. I discharged him home on the following medications; Lasix was given 20 mg b.i.d.; Spironolactone was increased to 25 mg b.i.d.; I will also send him home on aspirin 81 mg a day; finasteride 5 mg daily; loratadine 10 mg a day; [place]-3 and fish oil daily; oxybutynin 5 mg b.i.d. and 15 one tab daily; oxymetazoline nasal spray every 12 hours p.r.n.; simvastatin 40 mg with dinner; Flomax 0.4 mg at bedtime; Benadryl 25 mg 4 times a day p.r.n.; ketorolac eyedrops 4 times a day; one multivitamin a day. The following medications were discontinued; losartan, atenolol, hydrochlorothiazide, and amlodipine. The patient was advised to see his PCP at the [facility] this coming week or to return to the ED with any worsening symptoms. I spent more than 35 minutes in the discharge of the patient. He does need home fdc care, including medication check and physical and occupational therapy. This was ordered through [facility]. /[id number] CLAUDIO/DULCE
[2017-06-16] MEDS: Potassium Chloride 20 MEQ Tab.ER PO SCH (20:39)
[2017-06-16] MEDS: Simvastatin 40 MG Tab PO SCH (20:40)
[2017-06-17] MEDS: Albuterol/Ipratropium 3.0-0.5 MG/3 ML Neb Soln NEB SCH ×5 (04:40→20:00)
[2017-06-17] MEDS: Albuterol/Ipratropium 3.0-0.5 MG/3 ML Neb Soln NEB PRN (04:40)
[2017-06-17] MEDS ORDERED: Metolazone 5 MG Tab PO ONE (08:20)
--- NOTE | 2017-06-17 08:28 | PCM.PN ---
- General Info Date of Service: 06/17/17 Subjective Update: Andi is an 87-year-old male who has cough that is persistent. Was to be discharged yesterday but became short of breath after what he thought he might have aspirated when he tried to lay down for an ECHO. Overnight he was noted to be hypoxic and needed oxygen supplementation. He denies chest pain fever chills he has a history of CHF, asthma, type 2 diabetes previously well- controlled sugars have been climbing upwards to 200s. His blood pressures remained stable. Functional Status: Reports: Pain Controlled - Review of Systems General: Reports: Fatigue HEENT: Reports: No Symptoms Pulmonary: Reports: Shortness of Breath, Cough Cardiovascular: Reports: Dyspnea on Exertion, Edema Gastrointestinal: Reports: No Symptoms Genitourinary: Reports: No Symptoms - Patient Data Vitals - Most Recent: Last Vital Signs Temp 97.3 F 06/17/17 07:28 Pulse 62 06/17/17 07:42 Resp 19 06/17/17 07:28 BP 158/63 H 06/17/17 07:28 Pulse Ox 91 L 06/17/17 07:40 Weight - Most Recent: 121.653 kg I&O - Last 24 Hours: Intake & Output 06/16/17 06/17/17 06/17/17 22:59 06:59 14:59 Intake Total 100 1100 Output Total 900 600 Balance -800 500 Lab Results Last 24 Hours: Laboratory Results - last 24 hr 06/17/17 Range/Units 06:20 Sodium 126 L (135-145) mmol/L Potassium 4.3 (3.5-5.3) mmol/L Chloride 92 L D (100-110) mmol/L Carbon Dioxide 25 (23-29) mmol/L BUN 42 H (8-23) mg/dL Creatinine 1.6 H (0.6-1.3) mg/dL Est Cr Clr Drug Dosing 29.84 mL/min Estimated GFR (MDRD) 41 L (>60) BUN/Creatinine Ratio 26.3 H (9-20) Glucose 231 H (80-116) mg/dL Calcium 8.9 (8.6-10.2) mg/dL Total Bilirubin 0.4 (0.1-1.3) mg/dL AST 27 D (5-27) IU/L ALT 22 (14-26) IU/L Alkaline Phosphatase 81 (56-112) IU/L Total Protein 7.2 (6.0-8.0) g/dL Albumin 3.4 (3.2-4.6) g/dL Globulin 3.8 g/dL Albumin/Globulin Ratio 0.9 Med Orders - Current: Current Medications Albuterol/Ipratropium (Duoneb 3.0-0.5 Mg/3 Ml) 3 ml NEB QIDRT [facility] Last Admin: 06/17/17 07:39 Dose: 3 ml Albuterol/Ipratropium (Duoneb 3.0-0.5 Mg/3 Ml) 3 ml NEB Q4H PRN PRN Reason: Dyspnea Last Admin: 06/17/17 04:40 Dose: 3 ml Aspirin (Halfprin) 81 mg PO DAILY [facility] Last Admin: 06/16/17 09:27 Dose: 81 mg Benzonatate (Tessalon Perles) 200 mg PO BID [facility] Enoxaparin Sodium (Lovenox) 30 mg SUBCUT DAILY [facility] Last Admin: 06/16/17 09:28 Dose: 30 mg Finasteride (Proscar) 5 mg PO DAILY [facility] Last Admin: 06/16/17 09:28 Dose: 5 mg Fish Oil (Fish Oil) 1 gm PO DAILY [facility] Last Admin: 06/16/17 09:27 Dose: 1 gm Furosemide (Lasix) 40 mg IVPUSH BID [facility] Glipizide (Glucotrol) 5 mg PO BIDMEALS [facility] Last Admin: 06/16/17 18:05 Dose: 5 mg Insulin Aspart (Novolog) 0 unit SUBCUT TIDMEALS [facility] PRN Reason: Protocol Loratadine (Claritin) 10 mg PO DAILY [facility] Last Admin: 06/16/17 09:26 Dose: 10 mg Ketorolac 0.4% Ophthalmic Solution *Ptom 1 drop EYELF QID [facility] Last Admin: 06/16/17 20:38 Dose: 1 drop Ondansetron HCl (Zofran) 4 mg IV Q4H PRN PRN Reason: Nausea/Vomiting Oxybutynin Chloride (Oxybutynin) 5 mg PO BID [facility] Last Admin: 06/16/17 20:39 Dose: 5 mg Oxybutynin Chloride (Oxybutynin) 5 mg PO DAILY PRN PRN Reason: BLADDER SPASMS Oxymetazoline HCl (Afrin Original 0.05% Nasal [place]) 0 ml NASBOTH Q12H PRN PRN Reason: CONGESTION Potassium Chloride (Klor-Con M20) 20 meq PO BEDTIME [facility] Last Admin: 06/16/17 20:39 Dose: 20 meq Simvastatin (Zocor) 40 mg PO BEDTIME [facility] Last Admin: 06/16/17 20:40 Dose: 40 mg Sodium Chloride (Saline Flush) 10 ml FLUSH ASDIRECTED PRN PRN Reason: Keep Vein Open Last Admin: 06/16/17 13:37 Dose: 10 ml Spironolactone (Aldactone) 25 mg PO BID [facility] Last Admin: 06/16/17 20:38 Dose: 25 mg Tamsulosin HCl (Flomax) 0.4 mg PO PCDINNER [facility] Last Admin: 06/16/17 18:05 Dose: 0.4 mg Discontinued Medications Albuterol/Ipratropium (Duoneb 3.0-0.5 Mg/3 Ml) 3 ml NEB ONETIME ONE Stop: 06/13/17 19:00 Last Admin: 06/13/17 19:05 Dose: 3 ml Furosemide (Lasix) 40 mg IVPUSH NOW ONE Stop: 06/13/17 18:30 Last Admin: 06/13/17 18:34 Dose: 40 mg Furosemide (Lasix) 20 mg PO BIDDIURETIC [facility] Last Admin: 06/14/17 12:14 Dose: Not Given Furosemide (Lasix) 20 mg IVPUSH BIDDIURETIC [facility] Last Admin: 06/16/17 13:37 Dose: 20 mg Metolazone (Zaroxolyn) 5 mg PO ONETIME ONE Stop: 06/17/17 08:21 Oxybutynin Chloride (Oxybutynin) 5 mg PO TID PRN PRN Reason: BLADDER Spasms Spironolactone (Aldactone) 12.5 mg PO BID [facility] Last Admin: 06/15/17 08:20 Dose: 12.5 mg Spironolactone (Aldactone) 25 mg PO DAILY [facility] Spironolactone (Aldactone) 12.5 mg PO ONETIME ONE Stop: 06/15/17 09:31 Last Admin: 06/15/17 14:37 Dose: 12.5 mg - Exam Quality Assessment: Supplemental Oxygen General: Alert, Oriented, Mild Distress HEENT: Pupils Equal Neck: Supple Lungs: Clear to Auscultation, Normal Respiratory Effort Cardiovascular: Regular Rate, Regular Rhythm Extremities: Pedal Edema - Problem List & Annotations (1) CHF (congestive heart failure) SNOMED Code(s): 65153315 Code(s): I50.9 - HEART FAILURE, UNSPECIFIED Status: Acute Current Visit: Yes Qualifiers: Congestive heart failure type: combined Congestive heart failure chronicity : unspecified congestive heart failure chronicity Qualified Code(s): I50.40 - Unspecified combined systolic (congestive) and diastolic (congestive) heart failure (2) HTN (hypertension) SNOMED Code(s): 88243993 Code(s): I10 - ESSENTIAL (PRIMARY) HYPERTENSION Status: Acute Current Visit: Yes Qualifiers: Hypertension type: essential hypertension Qualified Code(s): I10 - Essential (primary) hypertension (3) Diabetes type 2, controlled SNOMED Code(s): 94653160 Code(s): E11.9 - TYPE 2 DIABETES MELLITUS WITHOUT COMPLICATIONS Status: Acute Current Visit: Yes Qualifiers: Diabetes mellitus complication status: with unspecified complications Diabetes mellitus intermediate insulin use: unspecified intermediate insulin use status Qualified Code(s): E11.8 - Type 2 diabetes mellitus with unspecified complications (4) Obesity SNOMED Code(s): 515673698 Code(s): E66.9 - OBESITY, UNSPECIFIED Status: Chronic Current Visit: Yes Qualifiers: Obesity type: due to excess calories (5) Hyponatremia SNOMED Code(s): 42142543 Code(s): E87.1 - HYPO-OSMOLALITY AND HYPONATREMIA Status: Acute Current Visit: Yes (6) History of permanent cardiac pacemaker placement SNOMED Code(s): 973402507 Code(s): Z95.0 - PRESENCE OF CARDIAC PACEMAKER Status: Acute Current Visit: Yes (7) Asthma SNOMED Code(s): 107971105 Code(s): J45.909 - UNSPECIFIED ASTHMA, UNCOMPLICATED Status: Acute Current Visit: Yes Qualifiers: Asthma complication type: uncomplicated (8) Palliative care status SNOMED Code(s): 072224815 Code(s): Z51.5 - ENCOUNTER FOR PALLIATIVE CARE Status: Acute Current Visit: Yes (9) KETURAH (acute kidney injury) SNOMED Code(s): 91563539 Code(s): N17.9 - ACUTE KIDNEY FAILURE, UNSPECIFIED Status: Acute Current Visit: Yes (10) Aspiration into lower respiratory tract SNOMED Code(s): 544221404 Code(s): T17.800A - UNSP FOREIGN BODY IN OTH PRT RESP TRACT CAUSING ASPHYX, INIT Status: Acute Current Visit: Yes - Problem List Review Problem List Initiated/Reviewed/Updated: Yes - My Orders Last 24 Hours: My Active Orders 06/16/17 08:48 Ready for Discharge [RC] PER UNIT ROUTINE 06/17/17 08:21 Accu Check [Blood Glucose Check, Bedside] [RC] TIDMEALS 06/17/17 08:30 Benzonatate [Tessalon Perles] 200 mg PO BID Insulin Aspart [NovoLOG] See Protocol SUBCUT TIDMEALS 06/17/17 09:00 Furosemide [Lasix] 40 mg IVPUSH BID 06/18/17 05:11 B-TYPE NATRIURETIC PEPTIDE,BNP [CHEM] AM BASIC METABOLIC PANEL,BMP [CHEM] AM CBC WITH AUTO DIFF [HEME] AM - Plan Plan:: I will be more aggressive in diuresis today. Increase Lasix to 40 mg twice a day. I given 1 dose of Zaroxolyn. His blood pressure seems to be stable. Therefore these no feel hypotension with diaphoresis. I'll continue the oxygen supplementation by nasal cannula. I've also given Tessalon Perles to help the cough, and that might get a chest x-ray tomorrow if symptoms are not much improved.
[2017-06-17] MEDS: Spironolactone 25 MG Tab PO SCH ×2 (09:01→20:00)
[2017-06-17] MEDS: Loratadine 10 MG Tab PO SCH (09:01)
[2017-06-17] MEDS: glipiZIDE 5 MG Tab PO SCH ×2 (09:02→17:13)
[2017-06-17] MEDS: Fish Oil/Omega-3 Fatty Acids 1 Gm Cap PO SCH (09:04)
[2017-06-17] MEDS: Aspirin 81 MG Tab.EC PO SCH (09:05)
[2017-06-17] MEDS: KETOROLAC 0.4% EYELF SCH ×4 (09:05→20:01)
[2017-06-17] MEDS: Enoxaparin 30 MG/0.3 ML Syringe SUBCUT SCH (09:06)
[2017-06-17] MEDS: Oxybutynin 5 MG Tab PO SCH ×2 (09:07→20:00)
[2017-06-17] MEDS: Finasteride 5 MG Tab PO SCH (09:07)
[2017-06-17] MEDS: Benzonatate 100 MG Cap PO SCH ×2 (09:24→20:00)
[2017-06-17] MEDS: Furosemide 40 MG/4 ML VIAL IVPUSH SCH ×2 (09:25→14:14)
[2017-06-17] MEDS: Insulin Aspart 100 Units/ML 3 ML Pen SUBCUT SCH ×3 (09:26→17:12)
[2017-06-17] MEDS: Furosemide 20 MG/2 ML VIAL IVPUSH SCH (11:52)
[2017-06-17] MEDS: Sodium Chloride 0.9% 10 ML Syringe FLUSH PRN (14:10)
[2017-06-17] MEDS: Tamsulosin 0.4 MG Cap.ER PO SCH (19:59)
[2017-06-17] MEDS: Simvastatin 40 MG Tab PO SCH (20:00)
[2017-06-17] MEDS: Potassium Chloride 20 MEQ Tab.ER PO SCH (20:01)
[2017-06-18] MEDS: Albuterol/Ipratropium 3.0-0.5 MG/3 ML Neb Soln NEB SCH ×4 (06:29→22:04)
[2017-06-18] MEDS: Benzonatate 100 MG Cap PO SCH ×2 (08:38→20:11)
[2017-06-18] MEDS: Loratadine 10 MG Tab PO SCH (08:39)
[2017-06-18] MEDS: Furosemide 40 MG/4 ML VIAL IVPUSH SCH ×2 (08:39→14:13)
[2017-06-18] MEDS: Finasteride 5 MG Tab PO SCH (08:39)
[2017-06-18] MEDS: Oxybutynin 5 MG Tab PO SCH ×2 (08:39→20:11)
[2017-06-18] MEDS: Fish Oil/Omega-3 Fatty Acids 1 Gm Cap PO SCH (08:39)
[2017-06-18] MEDS: Enoxaparin 30 MG/0.3 ML Syringe SUBCUT SCH (08:39)
[2017-06-18] MEDS: Spironolactone 25 MG Tab PO SCH ×2 (08:39→20:11)
[2017-06-18] MEDS: glipiZIDE 5 MG Tab PO SCH ×2 (08:39→17:00)
[2017-06-18] MEDS: Aspirin 81 MG Tab.EC PO SCH (08:39)
[2017-06-18] MEDS: KETOROLAC 0.4% EYELF SCH ×4 (08:39→20:12)
[2017-06-18] MEDS: Insulin Aspart 100 Units/ML 3 ML Pen SUBCUT SCH ×3 (08:40→17:06)
[2017-06-18] MEDS ORDERED: Metolazone 5 MG Tab PO ONE (08:56)
--- NOTE | 2017-06-18 09:12 | PCM.PN ---
- General Info Date of Service: 06/18/17 Subjective Update: Andi continues to be up-and-down in terms of his clinical symptoms. He still needs oxygenation for ambulation and short of breath and tachypnea at rest. He continues to cough persistently. However,there is no chest pain fever or chills. He slept well overnight. He is only down 2lbs since yesterday. Functional Status: Reports: Pain Controlled, Tolerating Diet - Review of Systems General: Reports: Weakness, Fatigue HEENT: Reports: No Symptoms Pulmonary: Reports: Shortness of Breath, Cough, Wheezing. Denies: Hemoptysis Cardiovascular: Reports: Dyspnea on Exertion, Edema Gastrointestinal: Reports: No Symptoms Genitourinary: Reports: No Symptoms - Patient Data Vitals - Most Recent: Last Vital Signs Temp 97.2 F 06/18/17 00:57 Pulse 79 06/17/17 20:23 Resp 20 06/18/17 00:57 BP 125/62 06/18/17 00:57 Pulse Ox 86 L 06/18/17 08:46 Weight - Most Recent: 120.837 kg I&O - Last 24 Hours: Intake & Output 06/17/17 06/18/17 06/18/17 22:59 06:59 14:59 Intake Total 1500 550 Output Total 1250 500 Balance 250 50 Lab Results Last 24 Hours: Laboratory Results - last 24 hr 06/17/17 06/17/17 06/18/17 Range/Units 11:48 17:09 07:40 WBC 12.5 H (4.5-12.0) X10-3/uL RBC 4.19 L (4.30-5.75) x10(6)uL Hgb 12.5 (11.5-15.5) g/dL Hct 36.4 (30.0-51.3) % MCV 87.0 (80-96) fL MCH 29.9 (27.7-33.6) pg MCHC 34.3 (32.2-35.4) g/dL RDW 14.2 (11.5-15.5) % Plt Count 187 (125-369) X10(3)uL MPV 8.1 (7.4-10.4) fL Add Manual Diff Yes Neutrophils % (Manual) 79 (46-82) % Lymphocytes % (Manual) 14 (13-37) % Monocytes % (Manual) 6 (4-12) % Eosinophils % (Manual) 1 (0-5) % Sodium (135-145) mmol/L Potassium (3.5-5.3) mmol/L Chloride (100-110) mmol/L Carbon Dioxide (23-29) mmol/L BUN (8-23) mg/dL Creatinine (0.6-1.3) mg/dL Est Cr Clr Drug Dosing mL/min Estimated GFR (MDRD) (>60) BUN/Creatinine Ratio (9-20) Glucose (80-116) mg/dL POC Glucose 257 H D 215 H (80-116) mg/dL Calcium (8.6-10.2) mg/dL B-Natriuretic Peptide (0-100) pg/mL 06/18/17 06/18/17 Range/Units 07:40 07:40 WBC (4.5-12.0) X10-3/uL RBC (4.30-5.75) x10(6)uL Hgb (11.5-15.5) g/dL Hct (30.0-51.3) % MCV (80-96) fL MCH (27.7-33.6) pg MCHC (32.2-35.4) g/dL RDW (11.5-15.5) % Plt Count (125-369) X10(3)uL MPV (7.4-10.4) fL Add Manual Diff Neutrophils % (Manual) (46-82) % Lymphocytes % (Manual) (13-37) % Monocytes % (Manual) (4-12) % Eosinophils % (Manual) (0-5) % Sodium 125 L (135-145) mmol/L Potassium 4.2 (3.5-5.3) mmol/L Chloride 90 L (100-110) mmol/L Carbon Dioxide 26 (23-29) mmol/L BUN 34 H (8-23) mg/dL Creatinine 1.4 H (0.6-1.3) mg/dL Est Cr Clr Drug Dosing 34.10 mL/min Estimated GFR (MDRD) 48 L (>60) BUN/Creatinine Ratio 24.3 H (9-20) Glucose 182 H (80-116) mg/dL POC Glucose (80-116) mg/dL Calcium 8.9 (8.6-10.2) mg/dL B-Natriuretic Peptide 189 H (0-100) pg/mL Med Orders - Current: Current Medications Albuterol/Ipratropium (Duoneb 3.0-0.5 Mg/3 Ml) 3 ml NEB QIDRT [facility] Last Admin: 06/18/17 06:29 Dose: 3 ml Albuterol/Ipratropium (Duoneb 3.0-0.5 Mg/3 Ml) 3 ml NEB Q4H PRN PRN Reason: Dyspnea Last Admin: 06/17/17 04:40 Dose: 3 ml Aspirin (Halfprin) 81 mg PO DAILY [facility] Last Admin: 06/18/17 08:39 Dose: 81 mg Benzonatate (Tessalon Perles) 200 mg PO BID [facility] Last Admin: 06/18/17 08:38 Dose: 200 mg Enoxaparin Sodium (Lovenox) 30 mg SUBCUT DAILY [facility] Last Admin: 06/18/17 08:39 Dose: 30 mg Finasteride (Proscar) 5 mg PO DAILY [facility] Last Admin: 06/18/17 08:39 Dose: 5 mg Fish Oil (Fish Oil) 1 gm PO DAILY [facility] Last Admin: 06/18/17 08:39 Dose: 1 gm Furosemide (Lasix) 40 mg IVPUSH BIDDIURETIC [facility] Last Admin: 06/18/17 08:39 Dose: 40 mg Glipizide (Glucotrol) 5 mg PO BIDMEALS [facility] Last Admin: 06/18/17 08:39 Dose: 5 mg Insulin Aspart (Novolog) 0 unit SUBCUT TIDMEALS [facility] PRN Reason: Protocol Last Admin: 06/18/17 08:40 Dose: 2 units Loratadine (Claritin) 10 mg PO DAILY [facility] Last Admin: 06/18/17 08:39 Dose: 10 mg Ketorolac 0.4% Ophthalmic Solution *Ptom 1 drop EYELF QID [facility] Last Admin: 06/18/17 08:39 Dose: 1 drop Ondansetron HCl (Zofran) 4 mg IV Q4H PRN PRN Reason: Nausea/Vomiting Oxybutynin Chloride (Oxybutynin) 5 mg PO BID [facility] Last Admin: 06/18/17 08:39 Dose: 5 mg Oxybutynin Chloride (Oxybutynin) 5 mg PO DAILY PRN PRN Reason: BLADDER SPASMS Oxymetazoline HCl (Afrin Original 0.05% Nasal [place]) 0 ml NASBOTH Q12H PRN PRN Reason: CONGESTION Potassium Chloride (Klor-Con M20) 20 meq PO BEDTIME [facility] Last Admin: 06/17/17 20:01 Dose: 20 meq Simvastatin (Zocor) 40 mg PO BEDTIME [facility] Last Admin: 06/17/17 20:00 Dose: 40 mg Sodium Chloride (Saline Flush) 10 ml FLUSH ASDIRECTED PRN PRN Reason: Keep Vein Open Last Admin: 06/17/17 14:10 Dose: 10 ml Spironolactone (Aldactone) 25 mg PO BID [facility] Last Admin: 06/18/17 08:39 Dose: 25 mg Tamsulosin HCl (Flomax) 0.4 mg PO PCDINNER [facility] Last Admin: 06/17/17 19:59 Dose: 0.4 mg Discontinued Medications Albuterol/Ipratropium (Duoneb 3.0-0.5 Mg/3 Ml) 3 ml NEB ONETIME ONE Stop: 06/13/17 19:00 Last Admin: 06/13/17 19:05 Dose: 3 ml Furosemide (Lasix) 40 mg IVPUSH NOW ONE Stop: 06/13/17 18:30 Last Admin: 06/13/17 18:34 Dose: 40 mg Furosemide (Lasix) 20 mg PO BIDDIURETIC [facility] Last Admin: 06/14/17 12:14 Dose: Not Given Furosemide (Lasix) 20 mg IVPUSH BIDDIURETIC [facility] Last Admin: 06/17/17 11:52 Dose: Not Given Metolazone (Zaroxolyn) 5 mg PO ONETIME ONE Stop: 06/17/17 08:21 Last Admin: 06/17/17 09:24 Dose: 5 mg Metolazone (Zaroxolyn) 5 mg PO ONETIME ONE Stop: 06/18/17 08:57 Oxybutynin Chloride (Oxybutynin) 5 mg PO TID PRN PRN Reason: BLADDER Spasms Spironolactone (Aldactone) 12.5 mg PO BID [facility] Last Admin: 06/15/17 08:20 Dose: 12.5 mg Spironolactone (Aldactone) 25 mg PO DAILY [facility] Spironolactone (Aldactone) 12.5 mg PO ONETIME ONE Stop: 06/15/17 09:31 Last Admin: 06/15/17 14:37 Dose: 12.5 mg - Exam Quality Assessment: Supplemental Oxygen General: Alert, Oriented, Cooperative, Mild Distress HEENT: Pupils Equal, Pupils Reactive, EOMI, Mucous Membr. Moist/[place] Neck: Supple Lungs: Crackles, Rhonchi Cardiovascular: Regular Rate, Regular Rhythm Extremities: Pedal Edema Psy/Mental Status: Alert, Normal Affect, Normal Mood - Problem List & Annotations (1) CHF (congestive heart failure) SNOMED Code(s): 29418887 Code(s): I50.9 - HEART FAILURE, UNSPECIFIED Status: Acute Current Visit: Yes Qualifiers: Congestive heart failure type: combined Congestive heart failure chronicity : unspecified congestive heart failure chronicity Qualified Code(s): I50.40 - Unspecified combined systolic (congestive) and diastolic (congestive) heart failure (2) HTN (hypertension) SNOMED Code(s): 08348199 Code(s): I10 - ESSENTIAL (PRIMARY) HYPERTENSION Status: Acute Current Visit: Yes Qualifiers: Hypertension type: essential hypertension Qualified Code(s): I10 - Essential (primary) hypertension (3) Diabetes type 2, controlled SNOMED Code(s): 61257245 Code(s): E11.9 - TYPE 2 DIABETES MELLITUS WITHOUT COMPLICATIONS Status: Acute Current Visit: Yes Qualifiers: Diabetes mellitus complication status: with unspecified complications Diabetes mellitus senior care insulin use: unspecified senior care insulin use status Qualified Code(s): E11.8 - Type 2 diabetes mellitus with unspecified complications (4) Obesity SNOMED Code(s): 168137739 Code(s): E66.9 - OBESITY, UNSPECIFIED Status: Chronic Current Visit: Yes Qualifiers: Obesity type: due to excess calories (5) Hyponatremia SNOMED Code(s): 23226288 Code(s): E87.1 - HYPO-OSMOLALITY AND HYPONATREMIA Status: Acute Current Visit: Yes (6) History of permanent cardiac pacemaker placement SNOMED Code(s): 834145704 Code(s): Z95.0 - PRESENCE OF CARDIAC PACEMAKER Status: Acute Current Visit: Yes (7) Asthma SNOMED Code(s): 380760307 Code(s): J45.909 - UNSPECIFIED ASTHMA, UNCOMPLICATED Status: Acute Current Visit: Yes Qualifiers: Asthma complication type: uncomplicated (8) Palliative care status SNOMED Code(s): 577646882 Code(s): Z51.5 - ENCOUNTER FOR PALLIATIVE CARE Status: Acute Current Visit: Yes (9) KETURAH (acute kidney injury) SNOMED Code(s): 08959135 Code(s): N17.9 - ACUTE KIDNEY FAILURE, UNSPECIFIED Status: Acute Current Visit: Yes (10) Aspiration into lower respiratory tract SNOMED Code(s): 886423405 Code(s): T17.800A - UNSP FOREIGN BODY IN OTH PRT RESP TRACT CAUSING ASPHYX, INIT Status: Acute Current Visit: Yes - Problem List Review Problem List Initiated/Reviewed/Updated: Yes - My Orders Last 24 Hours: My Active Orders 06/17/17 08:21 Accu Check [Blood Glucose Check, Bedside] [RC] TIDMEALS 06/17/17 08:30 Insulin Aspart [NovoLOG] See Protocol SUBCUT TIDMEALS 06/17/17 09:00 Benzonatate [Tessalon Perles] 200 mg PO BID Furosemide [Lasix] 40 mg IVPUSH BIDDIURETIC 06/18/17 08:56 Chest 2V [CR] Routine 06/19/17 05:11 B-TYPE NATRIURETIC PEPTIDE,BNP [CHEM] AM CBC WITH AUTO DIFF [HEME] AM COMPREHENSIVE METABOLIC PN,CMP [CHEM] AM TROPONIN I [CHEM] AM - Plan Plan:: I will give an extra dose of Zaroxolyn 5 mg today. I will order for a chest x- ray to see if he has any aspiration pneumonia. The rest of the current medications including IV Lasix (40mg IV BID)will be continued. His sodium is down to 125. I believe it's due to hypervolemia, CHF. However, I will restrict his oral free water intake to less than 800 mL per day.
[2017-06-18] MEDS ORDERED: Metolazone 2.5 MG Tab PO ONE ×2 (10:15→13:00)
[2017-06-18] MEDS: Albuterol/Ipratropium 3.0-0.5 MG/3 ML Neb Soln NEB PRN ×2 (14:22→19:19)
[2017-06-18] MEDS: Tamsulosin 0.4 MG Cap.ER PO SCH (20:11)
[2017-06-18] MEDS: Potassium Chloride 20 MEQ Tab.ER PO SCH (20:11)
[2017-06-18] MEDS: Simvastatin 40 MG Tab PO SCH (20:11)
[2017-06-19] MEDS: Albuterol/Ipratropium 3.0-0.5 MG/3 ML Neb Soln NEB SCH ×4 (07:06→20:22)
[2017-06-19] MEDS ORDERED: diphenhydrAMINE 25 MG Cap PO PRN (08:38)
--- NOTE | 2017-06-19 08:38 | PCM.PN ---
- General Info Date of Service: 06/19/17 Admission Dx/Problem (Free Text): Patient states he feels short of breath when he lays down. He does have a cough and malleolus sputum. He states he did not have that cough when he came in. His brother states he doesn't think the legs or any less swollen. They're currently wrapped. He denies chest pain, fevers, chills - Patient Data Vitals - Most Recent: Last Vital Signs Temp 97.8 F 06/19/17 00:00 Pulse 68 06/19/17 07:15 Resp 18 06/19/17 00:00 BP 143/88 H 06/19/17 00:00 Pulse Ox 93 L 06/19/17 07:15 Weight - Most Recent: 266 lb 6.4 oz I&O - Last 24 Hours: Intake & Output 06/18/17 06/19/17 06/19/17 22:59 06:59 14:59 Intake Total 200 Output Total 1000 450 Balance -800 -450 Lab Results Last 24 Hours: Laboratory Results - last 24 hr 06/18/17 06/18/17 06/19/17 Range/Units 11:45 16:56 07:07 WBC 18.5 H (4.5-12.0) X10-3/uL RBC 4.25 L (4.30-5.75) x10(6)uL Hgb 12.6 (11.5-15.5) g/dL Hct 36.7 (30.0-51.3) % MCV 86.3 (80-96) fL MCH 29.8 (27.7-33.6) pg MCHC 34.5 (32.2-35.4) g/dL RDW 13.8 (11.5-15.5) % Plt Count 178 (125-369) X10(3)uL MPV 8.4 (7.4-10.4) fL Add Manual Diff Yes Neutrophils % (Manual) 91 H (46-82) % Lymphocytes % (Manual) 7 L (13-37) % Monocytes % (Manual) 2 L (4-12) % Sodium (135-145) mmol/L Potassium (3.5-5.3) mmol/L Chloride (100-110) mmol/L Carbon Dioxide (23-29) mmol/L BUN (8-23) mg/dL Creatinine (0.6-1.3) mg/dL Est Cr Clr Drug Dosing mL/min Estimated GFR (MDRD) (>60) BUN/Creatinine Ratio (9-20) Glucose (80-116) mg/dL POC Glucose 231 H 299 H (80-116) mg/dL Calcium (8.6-10.2) mg/dL Total Bilirubin (0.1-1.3) mg/dL AST (5-27) IU/L ALT (14-26) IU/L Alkaline Phosphatase (56-112) IU/L B-Natriuretic Peptide (0-100) pg/mL Total Protein (6.0-8.0) g/dL Albumin (3.2-4.6) g/dL Globulin g/dL Albumin/Globulin Ratio 06/19/17 06/19/17 Range/Units 07:07 07:07 WBC (4.5-12.0) X10-3/uL RBC (4.30-5.75) x10(6)uL Hgb (11.5-15.5) g/dL Hct (30.0-51.3) % MCV (80-96) fL MCH (27.7-33.6) pg MCHC (32.2-35.4) g/dL RDW (11.5-15.5) % Plt Count (125-369) X10(3)uL MPV (7.4-10.4) fL Add Manual Diff Neutrophils % (Manual) (46-82) % Lymphocytes % (Manual) (13-37) % Monocytes % (Manual) (4-12) % Sodium 121 L (135-145) mmol/L Potassium 5.1 (3.5-5.3) mmol/L Chloride 87 L* (100-110) mmol/L Carbon Dioxide 26 (23-29) mmol/L BUN 38 H (8-23) mg/dL Creatinine 1.5 H (0.6-1.3) mg/dL Est Cr Clr Drug Dosing 31.83 mL/min Estimated GFR (MDRD) 44 L (>60) BUN/Creatinine Ratio 25.3 H (9-20) Glucose 258 H (80-116) mg/dL POC Glucose (80-116) mg/dL Calcium 8.9 (8.6-10.2) mg/dL Total Bilirubin 0.6 (0.1-1.3) mg/dL AST 50 H D (5-27) IU/L ALT 42 H D (14-26) IU/L Alkaline Phosphatase 82 (56-112) IU/L B-Natriuretic Peptide 259 H (0-100) pg/mL Total Protein 7.6 (6.0-8.0) g/dL Albumin 3.5 (3.2-4.6) g/dL Globulin 4.1 g/dL Albumin/Globulin Ratio 0.9 Med Orders - Current: Current Medications Albuterol/Ipratropium (Duoneb 3.0-0.5 Mg/3 Ml) 3 ml NEB QIDRT [facility] Last Admin: 06/19/17 07:06 Dose: 3 ml Albuterol/Ipratropium (Duoneb 3.0-0.5 Mg/3 Ml) 3 ml NEB Q4H PRN PRN Reason: Dyspnea Last Admin: 06/18/17 19:19 Dose: 3 ml Aspirin (Halfprin) 81 mg PO DAILY [facility] Last Admin: 06/18/17 08:39 Dose: 81 mg Benzonatate (Tessalon Perles) 200 mg PO BID [facility] Last Admin: 06/18/17 20:11 Dose: 200 mg Dibucaine (Nupercainal 1% Oint) 1 gm .XX QID PRN PRN Reason: Pain Enoxaparin Sodium (Lovenox) 30 mg SUBCUT DAILY [facility] Last Admin: 06/18/17 08:39 Dose: 30 mg Finasteride (Proscar) 5 mg PO DAILY [facility] Last Admin: 06/18/17 08:39 Dose: 5 mg Fish Oil (Fish Oil) 1 gm PO DAILY [facility] Last Admin: 06/18/17 08:39 Dose: 1 gm Furosemide (Lasix) 40 mg IVPUSH BIDDIURETIC [facility] Last Admin: 06/18/17 14:13 Dose: 40 mg Glipizide (Glucotrol) 5 mg PO BIDMEALS [facility] Last Admin: 06/18/17 17:00 Dose: 5 mg Insulin Aspart (Novolog) 0 unit SUBCUT TIDMEALS COLT PRN Reason: Protocol Last Admin: 06/18/17 17:06 Dose: 6 units Loratadine (Claritin) 10 mg PO DAILY [facility] Last Admin: 06/18/17 08:39 Dose: 10 mg Ketorolac 0.4% Ophthalmic Solution *Ptom 1 drop EYELF QID COLT Last Admin: 06/18/17 20:12 Dose: 1 drop Ondansetron HCl (Zofran) 4 mg IV Q4H PRN PRN Reason: Nausea/Vomiting Oxybutynin Chloride (Oxybutynin) 5 mg PO BID COLT Last Admin: 06/18/17 20:11 Dose: 5 mg Oxybutynin Chloride (Oxybutynin) 5 mg PO DAILY PRN PRN Reason: BLADDER SPASMS Oxymetazoline HCl (Afrin Original 0.05% Nasal [place]) 0 ml NASBOTH Q12H PRN PRN Reason: CONGESTION Potassium Chloride (Klor-Con M20) 20 meq PO BEDTIME [facility] Last Admin: 06/18/17 20:11 Dose: 20 meq Simvastatin (Zocor) 40 mg PO BEDTIME [facility] Last Admin: 06/18/17 20:11 Dose: 40 mg Sodium Chloride (Saline Flush) 10 ml FLUSH ASDIRECTED PRN PRN Reason: Keep Vein Open Last Admin: 06/17/17 14:10 Dose: 10 ml Spironolactone (Aldactone) 25 mg PO BID COLT Last Admin: 06/18/17 20:11 Dose: 25 mg Tamsulosin HCl (Flomax) 0.4 mg PO PCDINNER [facility] Last Admin: 06/18/17 20:11 Dose: 0.4 mg Discontinued Medications Albuterol/Ipratropium (Duoneb 3.0-0.5 Mg/3 Ml) 3 ml NEB ONETIME ONE Stop: 06/13/17 19:00 Last Admin: 06/13/17 19:05 Dose: 3 ml Furosemide (Lasix) 40 mg IVPUSH NOW ONE Stop: 06/13/17 18:30 Last Admin: 06/13/17 18:34 Dose: 40 mg Furosemide (Lasix) 20 mg PO BIDDIURETIC COLT Last Admin: 06/14/17 12:14 Dose: Not Given Furosemide (Lasix) 20 mg IVPUSH BIDDIURETIC COLT Last Admin: 06/17/17 11:52 Dose: Not Given Metolazone (Zaroxolyn) 5 mg PO ONETIME ONE Stop: 06/17/17 08:21 Last Admin: 06/17/17 09:24 Dose: 5 mg Metolazone (Zaroxolyn) 5 mg PO ONETIME ONE Stop: 06/18/17 08:57 Last Admin: 06/18/17 10:00 Dose: Not Given Metolazone (Zaroxolyn) 5 mg PO ONETIME ONE Stop: 06/18/17 10:16 Metolazone (Zaroxolyn) 5 mg PO ONETIME ONE Stop: 06/18/17 13:01 Last Admin: 06/18/17 13:09 Dose: 5 mg Oxybutynin Chloride (Oxybutynin) 5 mg PO TID PRN PRN Reason: BLADDER Spasms Spironolactone (Aldactone) 12.5 mg PO BID [facility] Last Admin: 06/15/17 08:20 Dose: 12.5 mg Spironolactone (Aldactone) 25 mg PO DAILY [facility] Spironolactone (Aldactone) 12.5 mg PO ONETIME ONE Stop: 06/15/17 09:31 Last Admin: 06/15/17 14:37 Dose: 12.5 mg - Exam General: Alert, Oriented, Cooperative Lungs: Rales (Bilateral), Other (Speaks in 4-5 word sentences.) Cardiovascular: Regular Rate, Regular Rhythm, No Murmurs Extremities: Other (Legs wrapped with Coban ) - Problem List & Annotations (1) Pneumonia SNOMED Code(s): 551903566 Code(s): J18.9 - PNEUMONIA, UNSPECIFIED ORGANISM Status: Acute Current Visit: Yes (2) CHF (congestive heart failure) SNOMED Code(s): 03853120 Code(s): I50.9 - HEART FAILURE, UNSPECIFIED Status: Acute Current Visit: Yes Qualifiers: Congestive heart failure type: combined Congestive heart failure chronicity : unspecified congestive heart failure chronicity Qualified Code(s): I50.40 - Unspecified combined systolic (congestive) and diastolic (congestive) heart failure (3) Diabetes type 2, controlled SNOMED Code(s): 80928322 Code(s): E11.9 - TYPE 2 DIABETES MELLITUS WITHOUT COMPLICATIONS Status: Acute Current Visit: Yes Qualifiers: Diabetes mellitus complication status: with unspecified complications Diabetes mellitus intermediate designer insulin use: unspecified halfway insulin use status Qualified Code(s): E11.8 - Type 2 diabetes mellitus with unspecified complications (4) HTN (hypertension) SNOMED Code(s): 93556567 Code(s): I10 - ESSENTIAL (PRIMARY) HYPERTENSION Status: Acute Current Visit: Yes Qualifiers: Hypertension type: essential hypertension Qualified Code(s): I10 - Essential (primary) hypertension (5) Hyponatremia SNOMED Code(s): 68110663 Code(s): E87.1 - HYPO-OSMOLALITY AND HYPONATREMIA Status: Acute Current Visit: Yes (6) Palliative care status SNOMED Code(s): 508214418 Code(s): Z51.5 - ENCOUNTER FOR PALLIATIVE CARE Status: Acute Current Visit: Yes (7) Obesity SNOMED Code(s): 702093470 Code(s): E66.9 - OBESITY, UNSPECIFIED Status: Chronic Current Visit: Yes Qualifiers: Obesity type: due to excess calories - Problem List Review Problem List Initiated/Reviewed/Updated: Yes - Plan Plan:: Patient is currently on Lasix 40 mg IV twice a day. Continue that course. To start Rocephin and metronidazole IV. I would like to get a CT scan of his chest. But the patient cannot lie flat at this time. His weight is the same. Lying down would help even if he has had elevated. His legs up would be beneficial. Recheck his labs in the a.m.
[2017-06-19] MEDS: glipiZIDE 5 MG Tab PO SCH ×2 (08:47→18:12)
[2017-06-19] MEDS: Furosemide 40 MG/4 ML VIAL IVPUSH SCH ×2 (08:47→14:52)
[2017-06-19] MEDS: Aspirin 81 MG Tab.EC PO SCH (08:48)
[2017-06-19] MEDS: Fish Oil/Omega-3 Fatty Acids 1 Gm Cap PO SCH (08:48)
[2017-06-19] MEDS: Loratadine 10 MG Tab PO SCH (08:48)
[2017-06-19] MEDS: Spironolactone 25 MG Tab PO SCH ×2 (08:48→20:21)
[2017-06-19] MEDS: Enoxaparin 30 MG/0.3 ML Syringe SUBCUT SCH (08:49)
[2017-06-19] MEDS: KETOROLAC 0.4% EYELF SCH ×4 (08:49→20:22)
[2017-06-19] MEDS: Oxybutynin 5 MG Tab PO SCH ×2 (08:49→20:24)
[2017-06-19] MEDS: Finasteride 5 MG Tab PO SCH (08:50)
[2017-06-19] MEDS: Benzonatate 100 MG Cap PO SCH ×2 (08:50→20:24)
[2017-06-19] MEDS: Insulin Aspart 100 Units/ML 3 ML Pen SUBCUT SCH ×3 (08:56→18:12)
[2017-06-19] MEDS ORDERED: Multivitamin Tab PO SCH (09:00)
[2017-06-19] MEDS ORDERED: Aspirin 81 MG Tab.EC PO SCH (09:00)
[2017-06-19] MEDS ORDERED: KETOROLAC 0.4% EYELF SCH (09:00)
[2017-06-19] MEDS: Multivitamin Tab PO SCH (09:22)
[2017-06-19] MEDS: metroNIDAZOLE/Normal Saline 500 MG in Premix Bag 1 BAG IV SCH ×2 (09:45→17:09)
[2017-06-19] MEDS: Sodium Chloride 0.9% 250 ML IV SCH (09:45)
[2017-06-19] MEDS ORDERED: Sodium Chloride 0.9% 10 ML Syringe FLUSH PRN (09:45)
[2017-06-19] MEDS ORDERED: Levofloxacin 500 MG Tab PO SCH (10:00)
[2017-06-19] MEDS ORDERED: Magnesium Hydroxide 400 MG/5 ML Susp 30 ML Cup PO PRN (12:26)
[2017-06-19] MEDS: Polyethylene Glycol 3350 Powder 17 GM Packet PO SCH ×2 (12:45→20:23)
--- NOTE | 2017-06-19 14:00 | CR ---
INDICATION: CHF, aspiration. CHEST: Two AP upright views of the chest with a lateral view, 06/18/2017, were compared with 06/15/2017 and 06/13/2017, revealing an appearance of decreased pulmonary vascular congestion. There still remains a very poor inspiration with some linear changes at the left lung base now seen, suggesting linear atelectasis. It is difficult to exclude a minimal patchy bronchopneumonia due to the very poor inspiration. However, no gross consolidating pneumonia or effusion was seen. Heart size is also difficult to evaluate due to the poor inspiration, but appears near the upper limits of normal in size to slightly enlarged. Pacemaker leads are unchanged in position. 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 IMPRESSION: Improved appearance of the chest compared with the previous study. The study is still somewhat limited by poor inspiration, however. MTDD
[2017-06-19] MEDS: Sodium Chloride 0.9% 10 ML Syringe FLUSH PRN (14:52)
[2017-06-19] MEDS: Tamsulosin 0.4 MG Cap.ER PO SCH (19:23)
[2017-06-19] MEDS: Mineral Oil/Petrolatum/Phenylephrine/Shark Liver Oil Oint 57 GM Tube RECTAL PRN (19:23)
[2017-06-19] MEDS: Potassium Chloride 20 MEQ Tab.ER PO SCH (20:23)
[2017-06-19] MEDS: Simvastatin 40 MG Tab PO SCH (20:24)
[2017-06-20] MEDS: metroNIDAZOLE/Normal Saline 500 MG in Premix Bag 1 BAG IV SCH ×3 (00:37→17:04)
[2017-06-20] MEDS: Albuterol/Ipratropium 3.0-0.5 MG/3 ML Neb Soln NEB PRN (00:45)
[2017-06-20] MEDS: Albuterol/Ipratropium 3.0-0.5 MG/3 ML Neb Soln NEB SCH ×4 (07:08→20:28)
--- NOTE | 2017-06-20 07:40 | PCM.PN ---
- General Info Date of Service: 06/20/17 Admission Dx/Problem (Free Text): Patient states that his cough is less and is breathing better today. He still has a cough. He denies fevers, chills, fatigue, chest pain. He states his leg swelling is also improved. - Patient Data Vitals - Most Recent: Last Vital Signs Temp 98.3 F 06/20/17 00:00 Pulse 77 06/20/17 00:00 Resp 23 H 06/20/17 00:00 BP 142/57 H 06/20/17 00:00 Pulse Ox 94 L 06/20/17 06:00 Weight - Most Recent: 262 lb 12.8 oz I&O - Last 24 Hours: Intake & Output 06/19/17 06/20/17 06/20/17 22:59 06:59 14:59 Intake Total 770 100 Output Total 900 200 Balance -130 -100 Lab Results Last 24 Hours: Laboratory Results - last 24 hr 06/19/17 06/19/17 06/19/17 Range/Units 07:07 07:07 12:17 WBC (4.5-12.0) X10-3/uL RBC (4.30-5.75) x10(6)uL Hgb (11.5-15.5) g/dL Hct (30.0-51.3) % MCV (80-96) fL MCH (27.7-33.6) pg MCHC (32.2-35.4) g/dL RDW (11.5-15.5) % Plt Count (125-369) X10(3)uL MPV (7.4-10.4) fL Add Manual Diff Neutrophils % (Manual) (46-82) % Band Neutrophils % (0-6) % Lymphocytes % (Manual) (13-37) % Monocytes % (Manual) (4-12) % Eosinophils % (Manual) (0-5) % Metamyelocytes % (0-0) % Sodium (135-145) mmol/L Potassium (3.5-5.3) mmol/L Chloride (100-110) mmol/L Carbon Dioxide (23-29) mmol/L BUN (8-23) mg/dL Creatinine (0.6-1.3) mg/dL Est Cr Clr Drug Dosing mL/min Estimated GFR (MDRD) (>60) BUN/Creatinine Ratio (9-20) Glucose (80-116) mg/dL POC Glucose 297 H (80-116) mg/dL Calcium (8.6-10.2) mg/dL Troponin I 0.05 (0.02-0.06) NG/ML B-Natriuretic Peptide 259 H (0-100) pg/mL 06/19/17 06/20/17 06/20/17 Range/Units 17:19 06:20 06:20 WBC 23.6 H (4.5-12.0) X10-3/uL RBC 4.13 L (4.30-5.75) x10(6)uL Hgb 12.4 (11.5-15.5) g/dL Hct 36.1 (30.0-51.3) % MCV 87.4 (80-96) fL MCH 30.1 (27.7-33.6) pg MCHC 34.5 (32.2-35.4) g/dL RDW 14.2 (11.5-15.5) % Plt Count 184 (125-369) X10(3)uL MPV 8.0 (7.4-10.4) fL Add Manual Diff Yes Neutrophils % (Manual) 87 H (46-82) % Band Neutrophils % 3 (0-6) % Lymphocytes % (Manual) 4 L (13-37) % Monocytes % (Manual) 3 L (4-12) % Eosinophils % (Manual) 1 (0-5) % Metamyelocytes % 2 H (0-0) % Sodium 122 L (135-145) mmol/L Potassium 5.1 (3.5-5.3) mmol/L Chloride 86 L* (100-110) mmol/L Carbon Dioxide 27 (23-29) mmol/L BUN 40 H (8-23) mg/dL Creatinine 1.6 H (0.6-1.3) mg/dL Est Cr Clr Drug Dosing 29.84 mL/min Estimated GFR (MDRD) 41 L (>60) BUN/Creatinine Ratio 25.0 H (9-20) Glucose 278 H (80-116) mg/dL POC Glucose 214 H D (80-116) mg/dL Calcium 8.8 (8.6-10.2) mg/dL Troponin I (0.02-0.06) NG/ML B-Natriuretic Peptide (0-100) pg/mL Med Orders - Current: Current Medications Albuterol/Ipratropium (Duoneb 3.0-0.5 Mg/3 Ml) 3 ml NEB QIDRT [facility] Last Admin: 06/20/17 07:08 Dose: 3 ml Albuterol/Ipratropium (Duoneb 3.0-0.5 Mg/3 Ml) 3 ml NEB Q4H PRN PRN Reason: Dyspnea Last Admin: 06/20/17 00:45 Dose: 3 ml Aspirin (Halfprin) 81 mg PO DAILY [facility] Last Admin: 06/19/17 08:48 Dose: 81 mg Benzonatate (Tessalon Perles) 200 mg PO BID [facility] Last Admin: 06/19/17 20:24 Dose: 200 mg Dibucaine (Nupercainal 1% Oint) 1 gm .XX QID PRN PRN Reason: Pain Diphenhydramine HCl (Benadryl) 25 mg PO QID PRN PRN Reason: Allergies Enoxaparin Sodium (Lovenox) 30 mg SUBCUT DAILY [facility] Last Admin: 06/19/17 08:49 Dose: 30 mg Finasteride (Proscar) 5 mg PO DAILY [facility] Last Admin: 06/19/17 08:50 Dose: 5 mg Fish Oil (Fish Oil) 1 gm PO DAILY [facility] Last Admin: 06/19/17 08:48 Dose: 1 gm Furosemide (Lasix) 40 mg IVPUSH BIDDIURETIC [facility] Last Admin: 06/19/17 14:52 Dose: 40 mg Glipizide (Glucotrol) 5 mg PO BIDMEALS [facility] Last Admin: 06/19/17 18:12 Dose: 5 mg Metronidazole 500 mg/ Premix 100 mls @ 100 mls/hr IV Q8H [facility] Last Admin: 06/20/17 00:37 Dose: 100 mls/hr Sodium Chloride (Normal Saline) 250 mls @ 100 mls/hr IV ASDIRECTED [facility] Last Admin: 06/19/17 09:45 Dose: 100 mls/hr Insulin Aspart (Novolog) 0 unit SUBCUT TIDMEALS [facility] PRN Reason: Protocol Last Admin: 06/19/17 18:12 Dose: 4 units Levofloxacin (Levaquin) 500 mg PO Q24H [facility] Last Admin: 06/19/17 10:29 Dose: 500 mg Loratadine (Claritin) 10 mg PO DAILY [facility] Last Admin: 06/19/17 08:48 Dose: 10 mg Magnesium Hydroxide (Milk Of Magnesia) 30 ml PO DAILY PRN PRN Reason: Constipation Last Admin: 06/19/17 12:45 Dose: 30 ml Multivitamins/Minerals/Vitamin C (Tab-A-Gonzalo) 1 tab PO DAILY@0800 [facility] Last Admin: 06/19/17 09:22 Dose: 1 tab Ketorolac 0.4% Ophthalmic Solution *Ptom 1 drop EYELF QID [facility] Last Admin: 06/19/17 20:22 Dose: 1 drop Ondansetron HCl (Zofran) 4 mg IV Q4H PRN PRN Reason: Nausea/Vomiting Oxybutynin Chloride (Oxybutynin) 5 mg PO BID [facility] Last Admin: 06/19/17 20:24 Dose: 5 mg Oxybutynin Chloride (Oxybutynin) 5 mg PO DAILY PRN PRN Reason: BLADDER SPASMS Oxymetazoline HCl (Afrin Original 0.05% Nasal [place]) 0 ml NASBOTH Q12H PRN PRN Reason: CONGESTION Phenyleph/Shark Oil/Min Oil/Petrol (Preparation H Oint) 0 gm RECTAL QID PRN PRN Reason: HEMMORRHOIDS Last Admin: 06/19/17 19:23 Dose: 1 applic Polyethylene Glycol (Miralax) 17 gm PO BID [facility] Last Admin: 06/19/17 20:23 Dose: 17 gm Potassium Chloride (Klor-Con M20) 20 meq PO BEDTIME [facility] Last Admin: 06/19/17 20:23 Dose: 20 meq Simvastatin (Zocor) 40 mg PO BEDTIME [facility] Last Admin: 06/19/17 20:24 Dose: 40 mg Sodium Chloride (Saline Flush) 10 ml FLUSH ASDIRECTED PRN PRN Reason: Keep Vein Open Last Admin: 06/19/17 14:52 Dose: 10 ml Sodium Chloride (Saline Flush) 10 ml FLUSH ASDIRECTED PRN PRN Reason: flush med Spironolactone (Aldactone) 25 mg PO BID [facility] Last Admin: 06/19/17 20:21 Dose: 25 mg Tamsulosin HCl (Flomax) 0.4 mg PO PCDINNER [facility] Last Admin: 06/19/17 19:23 Dose: 0.4 mg Discontinued Medications Albuterol/Ipratropium (Duoneb 3.0-0.5 Mg/3 Ml) 3 ml NEB ONETIME ONE Stop: 06/13/17 19:00 Last Admin: 06/13/17 19:05 Dose: 3 ml Furosemide (Lasix) 40 mg IVPUSH NOW ONE Stop: 06/13/17 18:30 Last Admin: 06/13/17 18:34 Dose: 40 mg Furosemide (Lasix) 20 mg PO BIDDIURETIC COLT Last Admin: 06/14/17 12:14 Dose: Not Given Furosemide (Lasix) 20 mg IVPUSH BIDDIURETIC COLT Last Admin: 06/17/17 11:52 Dose: Not Given Metolazone (Zaroxolyn) 5 mg PO ONETIME ONE Stop: 06/17/17 08:21 Last Admin: 06/17/17 09:24 Dose: 5 mg Metolazone (Zaroxolyn) 5 mg PO ONETIME ONE Stop: 06/18/17 08:57 Last Admin: 06/18/17 10:00 Dose: Not Given Metolazone (Zaroxolyn) 5 mg PO ONETIME ONE Stop: 06/18/17 10:16 Metolazone (Zaroxolyn) 5 mg PO ONETIME ONE Stop: 06/18/17 13:01 Last Admin: 06/18/17 13:09 Dose: 5 mg Oxybutynin Chloride (Oxybutynin) 5 mg PO TID PRN PRN Reason: BLADDER Spasms Spironolactone (Aldactone) 12.5 mg PO BID [facility] Last Admin: 06/15/17 08:20 Dose: 12.5 mg Spironolactone (Aldactone) 25 mg PO DAILY [facility] Spironolactone (Aldactone) 12.5 mg PO ONETIME ONE Stop: 06/15/17 09:31 Last Admin: 06/15/17 14:37 Dose: 12.5 mg - Exam General: Alert, Oriented, Cooperative Lungs: Normal Respiratory Effort, Crackles. No: Wheezing Cardiovascular: Regular Rate, Regular Rhythm, No Murmurs Extremities: Pedal Edema (+2) Skin: Warm, Dry, Intact Psy/Mental Status: Alert, Normal Affect, Normal Mood - Problem List & Annotations (1) Pneumonia SNOMED Code(s): 330876330 Code(s): J18.9 - PNEUMONIA, UNSPECIFIED ORGANISM Status: Acute Current Visit: Yes (2) CHF (congestive heart failure) SNOMED Code(s): 21108091 Code(s): I50.9 - HEART FAILURE, UNSPECIFIED Status: Acute Current Visit: Yes Qualifiers: Congestive heart failure type: combined Congestive heart failure chronicity : unspecified congestive heart failure chronicity Qualified Code(s): I50.40 - Unspecified combined systolic (congestive) and diastolic (congestive) heart failure (3) Diabetes type 2, controlled SNOMED Code(s): 64786438 Code(s): E11.9 - TYPE 2 DIABETES MELLITUS WITHOUT COMPLICATIONS Status: Acute Current Visit: Yes Qualifiers: Diabetes mellitus complication status: with unspecified complications Diabetes mellitus shelter insulin use: unspecified rat exterminator insulin use status Qualified Code(s): E11.8 - Type 2 diabetes mellitus with unspecified complications (4) HTN (hypertension) SNOMED Code(s): 82773892 Code(s): I10 - ESSENTIAL (PRIMARY) HYPERTENSION Status: Acute Current Visit: Yes Qualifiers: Hypertension type: essential hypertension Qualified Code(s): I10 - Essential (primary) hypertension (5) Hyponatremia SNOMED Code(s): 94254759 Code(s): E87.1 - HYPO-OSMOLALITY AND HYPONATREMIA Status: Acute Current Visit: Yes (6) Palliative care status SNOMED Code(s): 346840573 Code(s): Z51.5 - ENCOUNTER FOR PALLIATIVE CARE Status: Acute Current Visit: Yes (7) Obesity SNOMED Code(s): 388902930 Code(s): E66.9 - OBESITY, UNSPECIFIED Status: Chronic Current Visit: Yes Qualifiers: Obesity type: due to excess calories - Problem List Review Problem List Initiated/Reviewed/Updated: Yes - My Orders Last 24 Hours: My Active Orders 06/19/17 08:38 diphenhydrAMINE [Benadryl] 25 mg PO QID PRN 06/19/17 09:00 Multivitamins [Tab-A-Gonzalo] 1 tab PO DAILY@0800 metroNIDAZOLE/Normal Saline [Flagyl 500 MG in NS 100 ML] 500 mg Premix Bag 1 bag IV Q8H 06/19/17 10:00 Levofloxacin [Levaquin] 500 mg PO Q24H 06/19/17 11:28 MO/Pet,Wh/Phenylephrine/Shk Lv [Preparation H Oint] 0 gm RECTAL QID PRN 06/20/17 07:35 CULTURE BLOOD [BC] Urgent CULTURE BLOOD [BC] Urgent Blood Culture x2 Reflex Set [OM.PC] Urgent 06/20/17 07:45 Lisinopril [Prinivil] 10 mg PO DAILY 06/20/17 09:00 Sodium Chloride 1 gm PO TID 06/21/17 05:11 CBC WITH AUTO DIFF [HEME] AM COMPREHENSIVE METABOLIC PN,CMP [CHEM] AM 06/21/17 07:45 B-TYPE NATRIURETIC PEPTIDE,BNP [CHEM] AM 06/22/17 05:11 CBC WITH AUTO DIFF [HEME] AM - Plan Plan:: 1. Add on SONNY inhibitor 10 mg lisinopril today. 2. 1 g sodium chloride tablets 3 times a day for his hyponatremia. 3. Continue IV Lasix because it seems restarted to make a little progress finally with the 4 pound weight loss. 5. Continue fluid restriction. 6. Continue PT/OT. 7. His white count is even higher today so I will get blood cultures 2. Continue the Levaquin and metronidazole. This is most likely from aspiration when he laid down for the echocardiogram and choked. Clinically he looks stable and is not getting worse. Still cannot go home or be transferred at this time. Because of his white count, hyponatremia and shortness of breath.
[2017-06-20] MEDS ORDERED: Lisinopril 10 MG Tab PO SCH (09:00)
[2017-06-20] MEDS: glipiZIDE 5 MG Tab PO SCH ×2 (09:01→18:03)
[2017-06-20] MEDS: Insulin Aspart 100 Units/ML 3 ML Pen SUBCUT SCH ×3 (09:02→18:09)
[2017-06-20] MEDS: Multivitamin Tab PO SCH (09:05)
[2017-06-20] MEDS: Fish Oil/Omega-3 Fatty Acids 1 Gm Cap PO SCH (09:06)
[2017-06-20] MEDS: Spironolactone 25 MG Tab PO SCH ×2 (09:06→20:27)
[2017-06-20] MEDS: Loratadine 10 MG Tab PO SCH (09:06)
[2017-06-20] MEDS: KETOROLAC 0.4% EYELF SCH ×4 (09:07→20:28)
[2017-06-20] MEDS: Enoxaparin 30 MG/0.3 ML Syringe SUBCUT SCH (09:08)
[2017-06-20] MEDS: Oxybutynin 5 MG Tab PO SCH ×2 (09:08→20:29)
[2017-06-20] MEDS: Polyethylene Glycol 3350 Powder 17 GM Packet PO SCH ×2 (09:08→20:28)
[2017-06-20] MEDS: Finasteride 5 MG Tab PO SCH (09:09)
[2017-06-20] MEDS: Sodium Chloride 1 GM Tab PO SCH ×3 (09:12→20:31)
[2017-06-20] MEDS: Benzonatate 100 MG Cap PO SCH ×2 (09:12→20:29)
[2017-06-20] MEDS: Sodium Chloride 0.9% 10 ML Syringe FLUSH PRN ×3 (09:18→18:33)
[2017-06-20] MEDS: Sodium Chloride 0.9% 250 ML IV SCH (09:30)
[2017-06-20] MEDS: Furosemide 40 MG/4 ML VIAL IVPUSH SCH (09:32)
[2017-06-20] MEDS: Aspirin 81 MG Tab.EC PO SCH (09:36)
[2017-06-20] MEDS ORDERED: Levofloxacin 250 MG Tab PO SCH (10:00)
[2017-06-20] MEDS: Levofloxacin 250 MG Tab PO SCH (10:29)
[2017-06-20] MEDS: Furosemide 40 MG Tab PO SCH (18:10)
[2017-06-20] MEDS: Tamsulosin 0.4 MG Cap.ER PO SCH (18:33)
[2017-06-20] MEDS: Mineral Oil/Petrolatum/Phenylephrine/Shark Liver Oil Oint 57 GM Tube RECTAL PRN (18:56)
[2017-06-20] MEDS: Potassium Chloride 20 MEQ Tab.ER PO SCH (20:28)
[2017-06-20] MEDS: Simvastatin 40 MG Tab PO SCH (20:30)
[2017-06-21] MEDS: Albuterol/Ipratropium 3.0-0.5 MG/3 ML Neb Soln NEB PRN (00:38)
[2017-06-21] MEDS: Ondansetron 4 MG/2 ML SDV IV PRN ×2 (00:38→13:42)
[2017-06-21] MEDS: metroNIDAZOLE/Normal Saline 500 MG in Premix Bag 1 BAG IV SCH ×3 (00:38→17:42)
[2017-06-21] MEDS ORDERED: Ketorolac 30 MG/ML SDV IVPUSH ONE (02:49)
[2017-06-21] MEDS: Albuterol/Ipratropium 3.0-0.5 MG/3 ML Neb Soln NEB SCH ×5 (07:19→20:22)
--- NOTE | 2017-06-21 08:10 | PCM.PN ---
- General Info Date of Service: 06/21/17 Admission Dx/Problem (Free Text): Patient states his breathing is about the same. Cough is much improved as his breathing. He thinks his legs are less swollen. He states he is slumped in his chair for over 10 years because of breathing. He denies chest pain, fevers, chills. - Patient Data Vitals - Most Recent: Last Vital Signs Temp 97.6 F 06/21/17 07:36 Pulse 66 06/21/17 07:36 Resp 26 H 06/21/17 07:36 BP 102/41 L 06/21/17 07:36 Pulse Ox 91 L 06/21/17 07:36 Weight - Most Recent: 262 lb I&O - Last 24 Hours: Intake & Output 06/20/17 06/21/17 06/21/17 22:59 06:59 14:59 Intake Total 330 Output Total 300 1 Balance -300 329 Lab Results Last 24 Hours: Laboratory Results - last 24 hr 06/20/17 06/20/17 06/20/17 Range/Units 07:06 11:46 17:17 WBC (4.5-12.0) X10-3/uL RBC (4.30-5.75) x10(6)uL Hgb (11.5-15.5) g/dL Hct (30.0-51.3) % MCV (80-96) fL MCH (27.7-33.6) pg MCHC (32.2-35.4) g/dL RDW (11.5-15.5) % Plt Count (125-369) X10(3)uL MPV (7.4-10.4) fL Neut % (Auto) (46-82) % Lymph % (Auto) (13-37) % Pettis % (Auto) (4-12) % Eos % (Auto) (1.0-5.0) % Baso % (Auto) (0-2) % Neut # (Auto) (1.6-8.3) # Lymph # (Auto) (0.6-5.0) # Pettis # (Auto) (0.0-1.3) # Eos # (Auto) (0.0-0.8) # Baso # (Auto) (0.0-0.2) # Sodium (135-145) mmol/L Potassium (3.5-5.3) mmol/L Chloride (100-110) mmol/L Carbon Dioxide (23-29) mmol/L BUN (8-23) mg/dL Creatinine (0.6-1.3) mg/dL Est Cr Clr Drug Dosing mL/min Estimated GFR (MDRD) (>60) BUN/Creatinine Ratio (9-20) Glucose (80-116) mg/dL POC Glucose 263 H 181 H D 94 D (80-116) mg/dL Calcium (8.6-10.2) mg/dL Total Bilirubin (0.1-1.3) mg/dL AST (5-27) IU/L ALT (14-26) IU/L Alkaline Phosphatase (56-112) IU/L B-Natriuretic Peptide (0-100) pg/mL Total Protein (6.0-8.0) g/dL Albumin (3.2-4.6) g/dL Globulin g/dL Albumin/Globulin Ratio 06/21/17 06/21/17 06/21/17 Range/Units 06:50 06:50 06:50 WBC 16.9 H (4.5-12.0) X10-3/uL RBC 3.91 L (4.30-5.75) x10(6)uL Hgb 11.6 (11.5-15.5) g/dL Hct 34.4 (30.0-51.3) % MCV 87.9 (80-96) fL MCH 29.5 (27.7-33.6) pg MCHC 33.6 (32.2-35.4) g/dL RDW 14.4 (11.5-15.5) % Plt Count 194 (125-369) X10(3)uL MPV 8.3 (7.4-10.4) fL Neut % (Auto) 84.4 H (46-82) % Lymph % (Auto) 5.8 L (13-37) % Pettis % (Auto) 7.1 (4-12) % Eos % (Auto) 1 (1.0-5.0) % Baso % (Auto) 2 (0-2) % Neut # (Auto) 14.2 H (1.6-8.3) # Lymph # (Auto) 1.0 (0.6-5.0) # Pettis # (Auto) 1.2 (0.0-1.3) # Eos # (Auto) 0.2 (0.0-0.8) # Baso # (Auto) 0.3 H (0.0-0.2) # Sodium 126 L (135-145) mmol/L Potassium 5.2 (3.5-5.3) mmol/L Chloride 89 L* (100-110) mmol/L Carbon Dioxide 25 (23-29) mmol/L BUN 59 H D (8-23) mg/dL Creatinine 2.7 H* (0.6-1.3) mg/dL Est Cr Clr Drug Dosing 17.68 mL/min Estimated GFR (MDRD) 22 L (>60) BUN/Creatinine Ratio 21.9 H (9-20) Glucose 73 L D (80-116) mg/dL POC Glucose (80-116) mg/dL Calcium 8.4 L (8.6-10.2) mg/dL Total Bilirubin 0.4 (0.1-1.3) mg/dL AST 38 H D (5-27) IU/L ALT 32 H D (14-26) IU/L Alkaline Phosphatase 66 (56-112) IU/L B-Natriuretic Peptide 138 H (0-100) pg/mL Total Protein 6.4 (6.0-8.0) g/dL Albumin 2.8 L (3.2-4.6) g/dL Globulin 3.6 g/dL Albumin/Globulin Ratio 0.8 Master Results Last 24 Hours: Microbiology 06/20/17 07:50 Aerobic Blood Culture - Preliminary Blood - Venous - Lab Draw NO GROWTH AFTER 1 DAY Anaerobic Blood Culture - Final 06/20/17 07:45 Aerobic Blood Culture - Preliminary Blood - Venous NO GROWTH AFTER 1 DAY Anaerobic Blood Culture - Preliminary NO GROWTH AFTER 1 DAY Med Orders - Current: Current Medications Albuterol/Ipratropium (Duoneb 3.0-0.5 Mg/3 Ml) 3 ml NEB QIDRT COLT Last Admin: 06/21/17 07:22 Dose: Not Given Albuterol/Ipratropium (Duoneb 3.0-0.5 Mg/3 Ml) 3 ml NEB Q4H PRN PRN Reason: Dyspnea Last Admin: 06/21/17 00:38 Dose: 3 ml Aspirin (Halfprin) 81 mg PO DAILY [facility] Last Admin: 06/20/17 09:36 Dose: 81 mg Benzonatate (Tessalon Perles) 200 mg PO BID [facility] Last Admin: 06/20/17 20:29 Dose: 200 mg Dibucaine (Nupercainal 1% Oint) 1 gm .XX QID PRN PRN Reason: Pain Diphenhydramine HCl (Benadryl) 25 mg PO QID PRN PRN Reason: Allergies Enoxaparin Sodium (Lovenox) 30 mg SUBCUT DAILY [facility] Last Admin: 06/20/17 09:08 Dose: 30 mg Finasteride (Proscar) 5 mg PO DAILY [facility] Last Admin: 06/20/17 09:09 Dose: 5 mg Fish Oil (Fish Oil) 1 gm PO DAILY [facility] Last Admin: 06/20/17 09:06 Dose: 1 gm Glipizide (Glucotrol) 5 mg PO BIDMEALS [facility] Last Admin: 06/20/17 18:03 Dose: 5 mg Metronidazole 500 mg/ Premix 100 mls @ 100 mls/hr IV Q8H [facility] Last Admin: 06/21/17 00:38 Dose: 100 mls/hr Sodium Chloride (Normal Saline) 250 mls @ 70 mls/hr IV ASDIRECTED [facility] Last Admin: 06/20/17 09:30 Dose: 100 mls/hr Insulin Aspart (Novolog) 0 unit SUBCUT TIDMEALS [facility] PRN Reason: Protocol Last Admin: 06/20/17 18:09 Dose: Not Given Levofloxacin (Levaquin) 250 mg PO Q24H [facility] Last Admin: 06/20/17 10:29 Dose: 250 mg Loratadine (Claritin) 10 mg PO DAILY [facility] Last Admin: 06/20/17 09:06 Dose: 10 mg Magnesium Hydroxide (Milk Of Magnesia) 30 ml PO DAILY PRN PRN Reason: Constipation Last Admin: 06/19/17 12:45 Dose: 30 ml Multivitamins/Minerals/Vitamin C (Tab-A-Gonzalo) 1 tab PO DAILY@0800 [facility] Last Admin: 06/20/17 09:05 Dose: 1 tab Ketorolac 0.4% Ophthalmic Solution *Ptom 1 drop EYELF QID [facility] Last Admin: 06/20/17 20:28 Dose: 1 drop Ondansetron HCl (Zofran) 4 mg IV Q4H PRN PRN Reason: Nausea/Vomiting Last Admin: 06/21/17 00:38 Dose: 4 mg Oxybutynin Chloride (Oxybutynin) 5 mg PO BID [facility] Last Admin: 06/20/17 20:29 Dose: 5 mg Oxybutynin Chloride (Oxybutynin) 5 mg PO DAILY PRN PRN Reason: BLADDER SPASMS Oxymetazoline HCl (Afrin Original 0.05% Nasal Crosby) 0 ml NASBOTH Q12H PRN PRN Reason: CONGESTION Phenyleph/Shark Oil/Min Oil/Petrol (Preparation H Oint) 0 gm RECTAL QID PRN PRN Reason: HEMMORRHOIDS Last Admin: 06/20/17 18:56 Dose: 1 applic Polyethylene Glycol (Miralax) 17 gm PO BID [facility] Last Admin: 06/20/17 20:28 Dose: 17 gm Potassium Chloride (Klor-Con M20) 20 meq PO BEDTIME [facility] Last Admin: 06/20/17 20:28 Dose: 20 meq Simvastatin (Zocor) 40 mg PO BEDTIME [facility] Last Admin: 06/20/17 20:30 Dose: 40 mg Sodium Chloride (Saline Flush) 10 ml FLUSH ASDIRECTED PRN PRN Reason: Keep Vein Open Last Admin: 06/20/17 18:33 Dose: 10 ml Sodium Chloride (Saline Flush) 10 ml FLUSH ASDIRECTED PRN PRN Reason: flush med Sodium Chloride (Sodium Chloride) 1 gm PO TID [facility] Last Admin: 06/20/17 20:31 Dose: 1 gm Spironolactone (Aldactone) 25 mg PO BID [facility] Last Admin: 06/20/17 20:27 Dose: 25 mg [facility]amsulosin HCl (Flomax) [facility] [facility] Last Admin: 06/20/17 18:33 Dose: 0.4 mg Discontinued Medications Albuterol/Ipratropium (Duoneb 3.0-0.5 Mg/3 Ml) 3 ml NEB ONETIME ONE Stop: 06/13/17 19:00 Last Admin: 06/13/17 19:05 Dose: 3 ml Furosemide (Lasix) 40 mg IVPUSH NOW ONE Stop: 06/13/17 18:30 Last Admin: 06/13/17 18:34 Dose: 40 mg Furosemide (Lasix) 20 mg PO BIDDIURETIC COLT Last Admin: 06/14/17 12:14 Dose: Not Given Furosemide (Lasix) 20 mg IVPUSH BIDDIURETIC COLT Last Admin: 06/17/17 11:52 Dose: Not Given Furosemide (Lasix) 40 mg IVPUSH BIDDIURETIC COLT Last Admin: 06/20/17 09:32 Dose: 40 mg Furosemide (Lasix) 40 mg PO BIDDIURETIC [facility] Last Admin: 06/20/17 18:10 Dose: Not Given Ketorolac Tromethamine (Toradol) 15 mg IVPUSH ONETIME ONE Stop: 06/21/17 02:50 Last Admin: 06/21/17 03:11 Dose: 15 mg Levofloxacin (Levaquin) 500 mg PO Q24H COLT Stop: 06/20/17 09:55 Last Admin: 06/19/17 10:29 Dose: 500 mg Lisinopril (Prinivil) 10 mg PO DAILY [facility] Last Admin: 06/20/17 09:12 Dose: 10 mg Lisinopril (Prinivil) 2.5 mg PO DAILY [facility] Metolazone (Zaroxolyn) 5 mg PO ONETIME ONE Stop: 06/17/17 08:21 Last Admin: 06/17/17 09:24 Dose: 5 mg Metolazone (Zaroxolyn) 5 mg PO ONETIME ONE Stop: 06/18/17 08:57 Last Admin: 06/18/17 10:00 Dose: Not Given Metolazone (Zaroxolyn) 5 mg PO ONETIME ONE Stop: 06/18/17 10:16 Metolazone (Zaroxolyn) 5 mg PO ONETIME ONE Stop: 06/18/17 13:01 Last Admin: 06/18/17 13:09 Dose: 5 mg Oxybutynin Chloride (Oxybutynin) 5 mg PO TID PRN PRN Reason: BLADDER Spasms Spironolactone (Aldactone) 12.5 mg PO BID [facility] Last Admin: 06/15/17 08:20 Dose: 12.5 mg Spironolactone (Aldactone) 25 mg PO DAILY [facility] Spironolactone (Aldactone) 12.5 mg PO ONETIME ONE Stop: 06/15/17 09:31 Last Admin: 06/15/17 14:37 Dose: 12.5 mg - Exam General: Alert, Oriented, Cooperative Lungs: Normal Respiratory Effort, Crackles Cardiovascular: Regular Rate, Regular Rhythm, No Murmurs Extremities: Pedal Edema - Problem List & Annotations (1) Pneumonia SNOMED Code(s): 171764370 Code(s): J18.9 - PNEUMONIA, UNSPECIFIED ORGANISM Status: Acute Current Visit: Yes (2) CHF (congestive heart failure) SNOMED Code(s): 91940809 Code(s): I50.9 - HEART FAILURE, UNSPECIFIED Status: Acute Current Visit: Yes Qualifiers: Congestive heart failure type: combined Congestive heart failure chronicity : unspecified congestive heart failure chronicity Qualified Code(s): I50.40 - Unspecified combined systolic (congestive) and diastolic (congestive) heart failure (3) Diabetes type 2, controlled SNOMED Code(s): 01335404 Code(s): E11.9 - TYPE 2 DIABETES MELLITUS WITHOUT COMPLICATIONS Status: Acute Current Visit: Yes Qualifiers: Diabetes mellitus complication status: with unspecified complications Diabetes mellitus mcfp insulin use: unspecified mcfp insulin use status Qualified Code(s): E11.8 - Type 2 diabetes mellitus with unspecified complications (4) HTN (hypertension) SNOMED Code(s): 55165458 Code(s): I10 - ESSENTIAL (PRIMARY) HYPERTENSION Status: Acute Current Visit: Yes Qualifiers: Hypertension type: essential hypertension Qualified Code(s): I10 - Essential (primary) hypertension (5) Hyponatremia SNOMED Code(s): 79656244 Code(s): E87.1 - HYPO-OSMOLALITY AND HYPONATREMIA Status: Acute Current Visit: Yes (6) Palliative care status SNOMED Code(s): 062428315 Code(s): Z51.5 - ENCOUNTER FOR PALLIATIVE CARE Status: Acute Current Visit: Yes (7) Obesity SNOMED Code(s): 175704627 Code(s): E66.9 - OBESITY, UNSPECIFIED Status: Chronic Current Visit: Yes Qualifiers: Obesity type: due to excess calories (8) Chronic renal failure SNOMED Code(s): 55314086 Code(s): N18.9 - CHRONIC KIDNEY DISEASE, UNSPECIFIED Status: Acute Current Visit: Yes - Problem List Review Problem List Initiated/Reviewed/Updated: Yes - My Orders Last 24 Hours: My Active Orders 06/20/17 07:35 Blood Culture x2 Reflex Set [OM.PC] Urgent 06/20/17 07:45 CULTURE BLOOD [BC] Urgent 06/20/17 07:50 CULTURE BLOOD [BC] Urgent 06/20/17 09:00 Sodium Chloride 1 gm PO TID 06/20/17 10:00 Levofloxacin [Levaquin] 250 mg PO Q24H 06/22/17 05:11 CBC WITH AUTO DIFF [HEME] AM - Plan Plan:: 1. DC SONNY inhibitor. 2. Hold Lasix. 3. Stop fluid restriction and salt restriction 4. IV fluids at 70 mL normal saline hour to correct the creatinine. 5. CBC, Chem-12 in the a.m.
[2017-06-21] MEDS: glipiZIDE 5 MG Tab PO SCH ×2 (08:27→17:49)
[2017-06-21] MEDS: Spironolactone 25 MG Tab PO SCH ×2 (08:27→20:17)
[2017-06-21] MEDS: Multivitamin Tab PO SCH (08:27)
[2017-06-21] MEDS: Fish Oil/Omega-3 Fatty Acids 1 Gm Cap PO SCH (08:28)
[2017-06-21] MEDS: Loratadine 10 MG Tab PO SCH (08:28)
[2017-06-21] MEDS: Aspirin 81 MG Tab.EC PO SCH (08:28)
[2017-06-21] MEDS: KETOROLAC 0.4% EYELF SCH ×4 (08:29→20:17)
[2017-06-21] MEDS: Enoxaparin 30 MG/0.3 ML Syringe SUBCUT SCH (08:30)
[2017-06-21] MEDS: Polyethylene Glycol 3350 Powder 17 GM Packet PO SCH ×3 (08:31→20:18)
[2017-06-21] MEDS: Finasteride 5 MG Tab PO SCH (08:32)
[2017-06-21] MEDS: Oxybutynin 5 MG Tab PO SCH ×2 (08:32→20:19)
[2017-06-21] MEDS: Sodium Chloride 1 GM Tab PO SCH ×3 (08:33→20:19)
[2017-06-21] MEDS: Benzonatate 100 MG Cap PO SCH ×2 (08:33→20:19)
[2017-06-21] MEDS: Insulin Aspart 100 Units/ML 3 ML Pen SUBCUT SCH ×3 (08:34→17:43)
[2017-06-21] MEDS ORDERED: Lisinopril 2.5 MG Tab PO SCH (09:00)
[2017-06-21] MEDS: Levofloxacin 250 MG Tab PO SCH (11:00)
[2017-06-21] MEDS: Furosemide 40 MG Tab PO SCH (11:20)
[2017-06-21] MEDS: Sodium Chloride 0.9% 1,000 ML IV SCH (11:51)
--- NOTE | 2017-06-21 16:36 | CR ---
INDICATION: Needs increased oxygen, inspiration, and expiratory wheezes. CHEST: AP and two lateral views of the chest, 06/21/2017, were compared with and 06/15/2017, revealing no definite evidence of CHF at this time. Poor inspiration emphasizes markings, however, and there do appear to be some heavy markings at the left lung base, including subsegmental atelectatic changes , possibly patchy pneumonia, and possibly minimal pleural effusion - pleuritis. MTDD
[2017-06-21] MEDS ORDERED: Bisacodyl 10 MG Supp RECTAL PRN (17:36)
[2017-06-21] MEDS: Mineral Oil/Petrolatum/Phenylephrine/Shark Liver Oil Oint 57 GM Tube RECTAL PRN (18:56)
[2017-06-21] MEDS: Tamsulosin 0.4 MG Cap.ER PO SCH (18:58)
[2017-06-21] MEDS: Potassium Chloride 20 MEQ Tab.ER PO SCH (20:18)
[2017-06-21] MEDS: Simvastatin 40 MG Tab PO SCH (20:20)
[2017-06-22] MEDS: metroNIDAZOLE/Normal Saline 500 MG in Premix Bag 1 BAG IV SCH ×2 (00:36→09:23)
[2017-06-22] MEDS: Sodium Chloride 0.9% 1,000 ML IV SCH (05:25)
[2017-06-22] MEDS: Albuterol/Ipratropium 3.0-0.5 MG/3 ML Neb Soln NEB SCH (07:27)
[2017-06-22] MEDS: Insulin Aspart 100 Units/ML 3 ML Pen SUBCUT SCH (07:34)
[2017-06-22] MEDS ORDERED: Sodium Chloride 0.9% 10 ML Syringe FLUSH PRN (08:24)
[2017-06-22] MEDS ORDERED: Furosemide 40 MG/4 ML VIAL IVPUSH ONE (08:24)
--- NOTE | 2017-06-22 09:07 | PCM.PN ---
- General Info Date of Service: 06/22/17 Admission Dx/Problem (Free Text): Patient states he is not feeling well and a is having little tough time breathing. Nurses stated there didn't sleep that well last night. He does have a cough today. Leg swelling is about the same. He denies chest pain or abdominal pain. Nurses report that is a very little urine output. - Patient Data Vitals - Most Recent: Last Vital Signs Temp 97.5 F 06/22/17 05:00 Pulse 70 06/22/17 07:33 Resp 22 H 06/22/17 05:00 BP 106/38 L 06/22/17 05:00 Pulse Ox 88 L 06/22/17 07:27 Weight - Most Recent: 272 lb 6.4 oz I&O - Last 24 Hours: Intake & Output 06/21/17 06/22/17 06/22/17 22:59 06:59 14:59 Intake Total 738 587 Output Total 0 Balance 738 587 Lab Results Last 24 Hours: Laboratory Results - last 24 hr 06/21/17 06/21/17 06/21/17 Range/Units 10:43 12:20 17:37 WBC (4.5-12.0) X10-3/uL RBC (4.30-5.75) x10(6)uL Hgb (11.5-15.5) g/dL Hct (30.0-51.3) % MCV (80-96) fL MCH (27.7-33.6) pg MCHC (32.2-35.4) g/dL RDW (11.5-15.5) % Plt Count (125-369) X10(3)uL MPV (7.4-10.4) fL Add Manual Diff Neutrophils % (Manual) (46-82) % Lymphocytes % (Manual) (13-37) % Monocytes % (Manual) (4-12) % Eosinophils % (Manual) (0-5) % Sodium (135-145) mmol/L Potassium (3.5-5.3) mmol/L Chloride (100-110) mmol/L Carbon Dioxide (23-29) mmol/L BUN (8-23) mg/dL Creatinine (0.6-1.3) mg/dL Est Cr Clr Drug Dosing mL/min Estimated GFR (MDRD) (>60) BUN/Creatinine Ratio (9-20) Glucose (80-116) mg/dL POC Glucose 220 H D 73 L D (80-116) mg/dL Calcium (8.6-10.2) mg/dL Total Bilirubin (0.1-1.3) mg/dL AST (5-27) IU/L ALT (14-26) IU/L Alkaline Phosphatase (56-112) IU/L Total Protein (6.0-8.0) g/dL Albumin (3.2-4.6) g/dL Globulin g/dL Albumin/Globulin Ratio Urine Color Yellow (YELLOW) Urine Appearance Slightly cloudy (CLEAR) Urine pH 5.0 (5.0-6.5) Ur Specific Adger 1.015 (1.010-1.025) Urine Protein Negative (NEGATIVE) mg/dL Urine Glucose (UA) Normal (NEGATIVE) mg/dL Urine Ketones Negative (NEGATIVE) mg/dL Urine Occult Blood Negative (NEGATIVE) Urine Nitrite Negative (NEGATIVE) Urine Bilirubin Negative (NEGATIVE) Urine Urobilinogen Normal (NEGATIVE) mg/dL Ur Leukocyte Esterase Negative (NEGATIVE) Urine WBC 0-5 (0) Ur Squamous Epith Cells Few H (NS,R,O) Urine Bacteria Few H (NS) 06/22/17 06/22/17 06/22/17 Range/Units 06:30 06:30 06:35 WBC 15.8 H (4.5-12.0) X10-3/uL RBC 3.98 L (4.30-5.75) x10(6)uL Hgb 11.5 (11.5-15.5) g/dL Hct 34.5 (30.0-51.3) % MCV 86.7 (80-96) fL MCH 29.0 (27.7-33.6) pg MCHC 33.4 (32.2-35.4) g/dL RDW 14.4 (11.5-15.5) % Plt Count 223 (125-369) X10(3)uL MPV 7.8 (7.4-10.4) fL Add Manual Diff Yes Neutrophils % (Manual) 86 H (46-82) % Lymphocytes % (Manual) 6 L (13-37) % Monocytes % (Manual) 7 (4-12) % Eosinophils % (Manual) 1 (0-5) % Sodium 124 L (135-145) mmol/L Potassium 5.9 H (3.5-5.3) mmol/L Chloride 89 L* (100-110) mmol/L Carbon Dioxide 22 L (23-29) mmol/L BUN 72 H D (8-23) mg/dL Creatinine 3.0 H* (0.6-1.3) mg/dL Est Cr Clr Drug Dosing 15.91 mL/min Estimated GFR (MDRD) 20 L (>60) BUN/Creatinine Ratio 24.0 H (9-20) Glucose 52 L (80-116) mg/dL POC Glucose 48 L (80-116) mg/dL Calcium 8.1 L (8.6-10.2) mg/dL Total Bilirubin 0.5 (0.1-1.3) mg/dL AST 47 H D (5-27) IU/L ALT 40 H D (14-26) IU/L Alkaline Phosphatase 69 (56-112) IU/L Total Protein 6.5 (6.0-8.0) g/dL Albumin 2.7 L (3.2-4.6) g/dL Globulin 3.8 g/dL Albumin/Globulin Ratio 0.7 Urine Color (YELLOW) Urine Appearance (CLEAR) Urine pH (5.0-6.5) Ur Specific Adger (1.010-1.025) Urine Protein (NEGATIVE) mg/dL Urine Glucose (UA) (NEGATIVE) mg/dL Urine Ketones (NEGATIVE) mg/dL Urine Occult Blood (NEGATIVE) Urine Nitrite (NEGATIVE) Urine Bilirubin (NEGATIVE) Urine Urobilinogen (NEGATIVE) mg/dL Ur Leukocyte Esterase (NEGATIVE) Urine WBC (0) Ur Squamous Epith Cells (NS,R,O) Urine Bacteria (NS) 06/22/17 Range/Units 07:03 WBC (4.5-12.0) X10-3/uL RBC (4.30-5.75) x10(6)uL Hgb (11.5-15.5) g/dL Hct (30.0-51.3) % MCV (80-96) fL MCH (27.7-33.6) pg MCHC (32.2-35.4) g/dL RDW (11.5-15.5) % Plt Count (125-369) X10(3)uL MPV (7.4-10.4) fL Add Manual Diff Neutrophils % (Manual) (46-82) % Lymphocytes % (Manual) (13-37) % Monocytes % (Manual) (4-12) % Eosinophils % (Manual) (0-5) % Sodium (135-145) mmol/L Potassium (3.5-5.3) mmol/L Chloride (100-110) mmol/L Carbon Dioxide (23-29) mmol/L BUN (8-23) mg/dL Creatinine (0.6-1.3) mg/dL Est Cr Clr Drug Dosing mL/min Estimated GFR (MDRD) (>60) BUN/Creatinine Ratio (9-20) Glucose (80-116) mg/dL POC Glucose 64 L (80-116) mg/dL Calcium (8.6-10.2) mg/dL Total Bilirubin (0.1-1.3) mg/dL AST (5-27) IU/L ALT (14-26) IU/L Alkaline Phosphatase (56-112) IU/L Total Protein (6.0-8.0) g/dL Albumin (3.2-4.6) g/dL Globulin g/dL Albumin/Globulin Ratio Urine Color (YELLOW) Urine Appearance (CLEAR) Urine pH (5.0-6.5) Ur Specific Adger (1.010-1.025) Urine Protein (NEGATIVE) mg/dL Urine Glucose (UA) (NEGATIVE) mg/dL Urine Ketones (NEGATIVE) mg/dL Urine Occult Blood (NEGATIVE) Urine Nitrite (NEGATIVE) Urine Bilirubin (NEGATIVE) Urine Urobilinogen (NEGATIVE) mg/dL Ur Leukocyte Esterase (NEGATIVE) Urine WBC (0) Ur Squamous Epith Cells (NS,R,O) Urine Bacteria (NS) Master Results Last 24 Hours: Microbiology 06/20/17 07:50 Aerobic Blood Culture - Preliminary Blood - Venous - Lab Draw NO GROWTH AFTER 2 DAYS Anaerobic Blood Culture - Final 06/20/17 07:45 Aerobic Blood Culture - Preliminary Blood - Venous NO GROWTH AFTER 2 DAYS Anaerobic Blood Culture - Preliminary NO GROWTH AFTER 2 DAYS Med Orders - Current: Current Medications Albuterol/Ipratropium (Duoneb 3.0-0.5 Mg/3 Ml) 3 ml NEB QIDRT COLT Last Admin: 06/22/17 07:27 Dose: 3 ml Albuterol/Ipratropium (Duoneb 3.0-0.5 Mg/3 Ml) 3 ml NEB Q4H PRN PRN Reason: Dyspnea Last Admin: 06/21/17 00:38 Dose: 3 ml Aspirin (Halfprin) 81 mg PO DAILY [facility] Last Admin: 06/21/17 08:28 Dose: 81 mg Benzonatate (Tessalon Perles) 200 mg PO BID [facility] Last Admin: 06/21/17 20:19 Dose: 200 mg Bisacodyl (Dulcolax) 10 mg RECTAL DAILY PRN PRN Reason: Constipation Dibucaine (Nupercainal 1% Oint) 1 gm .XX QID PRN PRN Reason: Pain Diphenhydramine HCl (Benadryl) 25 mg PO QID PRN PRN Reason: Allergies Enoxaparin Sodium (Lovenox) 30 mg SUBCUT DAILY [facility] Last Admin: 06/21/17 08:30 Dose: 30 mg Finasteride (Proscar) 5 mg PO DAILY [facility] Last Admin: 06/21/17 08:32 Dose: 5 mg Fish Oil (Fish Oil) 1 gm PO DAILY [facility] Last Admin: 06/21/17 08:28 Dose: 1 gm Metronidazole 500 mg/ Premix 100 mls @ 100 mls/hr IV Q8H [facility] Last Admin: 06/22/17 00:36 Dose: 100 mls/hr Sodium Chloride (Normal Saline) 250 mls @ 100 mls/hr IV ASDIRECTED [facility] Last Admin: 06/20/17 09:30 Dose: 100 mls/hr Sodium Chloride (Normal Saline) 1,000 mls @ 70 mls/hr IV ASDIRECTED [facility] Last Admin: 06/22/17 05:25 Dose: 70 mls/hr Insulin Aspart (Novolog) 0 unit SUBCUT TIDMEALS [facility] PRN Reason: Protocol Last Admin: 06/22/17 07:34 Dose: Not Given Loratadine (Claritin) 10 mg PO DAILY [facility] Last Admin: 06/21/17 08:28 Dose: 10 mg Magnesium Hydroxide (Milk Of Magnesia) 30 ml PO DAILY PRN PRN Reason: Constipation Last Admin: 06/19/17 12:45 Dose: 30 ml Multivitamins/Minerals/Vitamin C (Tab-A-Gonzalo) 1 tab PO DAILY@0800 [facility] Last Admin: 06/21/17 08:27 Dose: 1 tab Ketorolac 0.4% Ophthalmic Solution *Ptom 1 drop EYELF QID [facility] Last Admin: 06/21/17 20:17 Dose: 1 drop Ondansetron HCl (Zofran) 4 mg IV Q4H PRN PRN Reason: Nausea/Vomiting Last Admin: 06/21/17 13:42 Dose: 4 mg Oxybutynin Chloride (Oxybutynin) 5 mg PO BID [facility] Last Admin: 06/21/17 20:19 Dose: 5 mg Oxybutynin Chloride (Oxybutynin) 5 mg PO DAILY PRN PRN Reason: BLADDER SPASMS Oxymetazoline HCl (Afrin Original 0.05% Nasal [place]) 0 ml NASBOTH Q12H PRN PRN Reason: CONGESTION Phenyleph/Shark Oil/Min Oil/Petrol (Preparation H Oint) 0 gm RECTAL QID PRN PRN Reason: HEMMORRHOIDS Last Admin: 06/21/17 18:56 Dose: 1 applic Polyethylene Glycol (Miralax) 17 gm PO BID [facility] Last Admin: 06/21/17 20:18 Dose: 17 gm Polyethylene Glycol (Miralax) 17 gm PO DAILY [facility] Last Admin: 06/21/17 17:48 Dose: 17 gm Simvastatin (Zocor) 40 mg PO BEDTIME [facility] Last Admin: 06/21/17 20:20 Dose: 40 mg Sodium Chloride (Saline Flush) 10 ml FLUSH ASDIRECTED PRN PRN Reason: Keep Vein Open Last Admin: 06/20/17 18:33 Dose: 10 ml Sodium Chloride (Sodium Chloride) 1 gm PO TID [facility] Last Admin: 06/21/17 20:19 Dose: 1 gm Sodium Chloride (Saline Flush) 10 ml FLUSH ASDIRECTED PRN PRN Reason: Keep Vein Open Spironolactone (Aldactone) 25 mg PO BID [facility] Last Admin: 06/21/17 20:17 Dose: 25 mg Tamsulosin HCl (Flomax) 0.4 mg PO PCDINNER [facility] Last Admin: 06/21/17 18:58 Dose: 0.4 mg Discontinued Medications Albuterol/Ipratropium (Duoneb 3.0-0.5 Mg/3 Ml) 3 ml NEB ONETIME ONE Stop: 06/13/17 19:00 Last Admin: 06/13/17 19:05 Dose: 3 ml Furosemide (Lasix) 40 mg IVPUSH NOW ONE Stop: 06/13/17 18:30 Last Admin: 06/13/17 18:34 Dose: 40 mg Furosemide (Lasix) 20 mg PO BIDDIURETIC COLT Last Admin: 06/14/17 12:14 Dose: Not Given Furosemide (Lasix) 20 mg IVPUSH BIDDIURETIC COLT Last Admin: 06/17/17 11:52 Dose: Not Given Furosemide (Lasix) 40 mg IVPUSH BIDDIURETIC COLT Last Admin: 06/20/17 09:32 Dose: 40 mg Furosemide (Lasix) 40 mg PO BIDDIURETIC COLT Last Admin: 06/21/17 11:20 Dose: Not Given Furosemide (Lasix) 40 mg IVPUSH NOW ONE Stop: 06/22/17 08:25 Glipizide (Glucotrol) 5 mg PO BIDMEALS [facility] Last Admin: 06/21/17 17:49 Dose: 5 mg Ketorolac Tromethamine (Toradol) 15 mg IVPUSH ONETIME ONE Stop: 06/21/17 02:50 Last Admin: 06/21/17 03:11 Dose: 15 mg Levofloxacin (Levaquin) 500 mg PO Q24H [facility] Stop: 06/20/17 09:55 Last Admin: 06/19/17 10:29 Dose: 500 mg Levofloxacin (Levaquin) 250 mg PO Q24H [facility] Last Admin: 06/21/17 11:00 Dose: 250 mg Lisinopril (Prinivil) 10 mg PO DAILY [facility] Last Admin: 06/20/17 09:12 Dose: 10 mg Lisinopril (Prinivil) 2.5 mg PO DAILY [facility] Metolazone (Zaroxolyn) 5 mg PO ONETIME ONE Stop: 06/17/17 08:21 Last Admin: 06/17/17 09:24 Dose: 5 mg Metolazone (Zaroxolyn) 5 mg PO ONETIME ONE Stop: 06/18/17 08:57 Last Admin: 06/18/17 10:00 Dose: Not Given Metolazone (Zaroxolyn) 5 mg PO ONETIME ONE Stop: 06/18/17 10:16 Metolazone (Zaroxolyn) 5 mg PO ONETIME ONE Stop: 06/18/17 13:01 Last Admin: 06/18/17 13:09 Dose: 5 mg Oxybutynin Chloride (Oxybutynin) 5 mg PO TID PRN PRN Reason: BLADDER Spasms Potassium Chloride (Klor-Con M20) 20 meq PO BEDTIME [facility] Last Admin: 06/21/17 20:18 Dose: 20 meq Sodium Chloride (Saline Flush) 10 ml FLUSH ASDIRECTED PRN PRN Reason: flush med Spironolactone (Aldactone) 12.5 mg PO BID [facility] Last Admin: 06/15/17 08:20 Dose: 12.5 mg Spironolactone (Aldactone) 25 mg PO DAILY [facility] Spironolactone (Aldactone) 12.5 mg PO ONETIME ONE Stop: 06/15/17 09:31 Last Admin: 06/15/17 14:37 Dose: 12.5 mg - Exam General: Alert, Oriented, Cooperative Lungs: Rales, Other (Mild tachypnea) Cardiovascular: Regular Rate, Regular Rhythm, No Murmurs GI/Abdominal Exam: Normal Bowel Sounds, Soft, Non-Tender, No Organomegaly, No Distention Extremities: Pedal Edema (+3) Skin: Warm, Dry, Intact Psy/Mental Status: Alert, Normal Affect, Normal Mood - Problem List & Annotations (1) Pneumonia SNOMED Code(s): 077465511 Code(s): J18.9 - PNEUMONIA, UNSPECIFIED ORGANISM Status: Acute Current Visit: Yes (2) CHF (congestive heart failure) SNOMED Code(s): 38494760 Code(s): I50.9 - HEART FAILURE, UNSPECIFIED Status: Acute Current Visit: Yes Qualifiers: Congestive heart failure type: combined Congestive heart failure chronicity : unspecified congestive heart failure chronicity Qualified Code(s): I50.40 - Unspecified combined systolic (congestive) and diastolic (congestive) heart failure (3) Diabetes type 2, controlled SNOMED Code(s): 51120822 Code(s): E11.9 - TYPE 2 DIABETES MELLITUS WITHOUT COMPLICATIONS Status: Acute Current Visit: Yes Qualifiers: Diabetes mellitus complication status: with unspecified complications Diabetes mellitus buttermilk drier operator insulin use: unspecified buttermilk drier operator insulin use status Qualified Code(s): E11.8 - Type 2 diabetes mellitus with unspecified complications (4) HTN (hypertension) SNOMED Code(s): 99244724 Code(s): I10 - ESSENTIAL (PRIMARY) HYPERTENSION Status: Acute Current Visit: Yes Qualifiers: Hypertension type: essential hypertension Qualified Code(s): I10 - Essential (primary) hypertension (5) Hyponatremia SNOMED Code(s): 19102125 Code(s): E87.1 - HYPO-OSMOLALITY AND HYPONATREMIA Status: Acute Current Visit: Yes (6) Palliative care status SNOMED Code(s): 920708689 Code(s): Z51.5 - ENCOUNTER FOR PALLIATIVE CARE Status: Acute Current Visit: Yes (7) Obesity SNOMED Code(s): 144362408 Code(s): E66.9 - OBESITY, UNSPECIFIED Status: Chronic Current Visit: Yes Qualifiers: Obesity type: due to excess calories (8) Chronic renal failure SNOMED Code(s): 00818530 Code(s): N18.9 - CHRONIC KIDNEY DISEASE, UNSPECIFIED Status: Acute Current Visit: Yes - Problem List Review Problem List Initiated/Reviewed/Updated: Yes - My Orders Last 24 Hours: My Active Orders 06/21/17 09:00 Sodium Chloride 0.9% [Normal Saline] 1,000 ml IV ASDIRECTED 06/21/17 10:51 Bladder Scan [RC] .PRN 06/21/17 12:00 Insert Urinary Catheter [OM.PC] Q8H 06/21/17 17:11 Urinary Catheter Assessment [RC] QSHIFT 06/21/17 17:36 Bisacodyl [Dulcolax] 10 mg RECTAL DAILY PRN 06/21/17 17:45 Polyethylene Glycol 3350 [MiraLAX] 17 gm PO DAILY 06/21/17 20:00 Insert Urinary Catheter [OM.PC] Q8H 06/22/17 04:00 Insert Urinary Catheter [OM.PC] Q8H 06/22/17 08:24 Sodium Chloride 0.9% [Saline Flush] 10 ml FLUSH ASDIRECTED PRN Saline Lock Insert [OM.PC] Routine 06/22/17 12:00 Insert Urinary Catheter [OM.PC] Q8H 06/22/17 20:00 Insert Urinary Catheter [OM.PC] Q8H - Plan Plan:: 1. DC IV fluids and saline lock IV. 2. I will hold his glyburide and Lantus for now. 3. Hold Levaquin. 4. Discuss transfer the patient which I think is pertinent. [facility]. Called [place] and they agreed to take him in transfer. The doctors Dr. Cates. Patient has multiple medical conditions and his kidney is worsening. 5. Give 40 mg IV Lasix and CVAT will improve his breathing.
--- NOTE | 2017-06-22 09:16 | PCM.DCSUM1 ---
Discharge Summary - Hospital Course Free Text/Narrative:: Hospital course-patient was admitted for CHF as elevated BMP and CHF on chest x- ray. He was initially put on Lasix and did not respond. So the admitting doctor placed him on a fluid restriction and increase his Lasix to 40 mg twice a day IV. He ordered an echocardiogram. When the patient had echocardiogram he says he felt like he was choking and fluid was coming up. After that his breathing got worse and he had to be on oxygen as white count went up. He was put on Levaquin 250 mg IV with metronidazole 500 mg IV 3 times a day. Patient's sodium was low he was on the swimmer's sugar diet surgery stop that and put him on sodium tablets to try to get his sodium up. Patient's breathing improved as did his leg swelling although he still had pitting edema. Patient refused to lie in bed or lie down and continue to sit in the chair with his legs up. Patient's creatinine started out 1.5 and slowly crept up to 2.7. At that time stopped the fluid restriction and Lasix and gave him some fluids 70 mL an hour. The next day he was 3.0. Patient was a little more short of breath and again some weight. We'll give a little more Lasix today. He shouldn't has multiple medical problems and needs some consultation from nephrology and probably cardiology. Discussed the patient with Dr. Cates [facility] and he agreed to take him in transfer by [facility]. [facility] and they were full. His diabetes-he was on his Lantus and glipizide. Blood sugars are low 200s. The last day was not eating well and his blood sugars were down to 60 so we held that also. Brief History: 87-year-old pleasant who presented to the ER last night with shortness of breath for 2 days. The shortness of breath was insidious in onset,progressively getting worse, worsened by ambulation. Associated PND, and orthopnea. He said that he has a history of asthma which has been well- controlled and felt that it was getting worse. He also has a pacemaker, hypertension and type 2 diabetes previously stable. [facility] He denied chest pain fever chills or production of sputum. He further complained of leg swelling that is bilateral of the last few days - Discharge Data Discharge Date: 06/22/17 Discharge Disposition: DC/Tfer to Acute Hospital 02 Condition: Fair - Discharge Diagnosis/Problem(s) (1) Pneumonia SNOMED Code(s): 104500158 ICD Code: J18.9 - PNEUMONIA, UNSPECIFIED ORGANISM Status: Acute Current Visit: Yes (2) CHF (congestive heart failure) SNOMED Code(s): 90196803 ICD Code: I50.9 - HEART FAILURE, UNSPECIFIED Status: Acute Current Visit : Yes Qualifiers: Congestive heart failure type: combined Congestive heart failure chronicity : unspecified congestive heart failure chronicity Qualified Code(s): I50.40 - Unspecified combined systolic (congestive) and diastolic (congestive) heart failure (3) Diabetes type 2, controlled SNOMED Code(s): 62007343 ICD Code: E11.9 - TYPE 2 DIABETES MELLITUS WITHOUT COMPLICATIONS Status: Acute Current Visit: Yes Qualifiers: Diabetes mellitus complication status: with unspecified complications Diabetes mellitus terminal computer operator insulin use: unspecified terminal computer operator insulin use status Qualified Code(s): E11.8 - Type 2 diabetes mellitus with unspecified complications (4) HTN (hypertension) SNOMED Code(s): 97332963 ICD Code: I10 - ESSENTIAL (PRIMARY) HYPERTENSION Status: Acute Current Visit: Yes Qualifiers: Hypertension type: essential hypertension Qualified Code(s): I10 - Essential (primary) hypertension (5) Hyponatremia SNOMED Code(s): 11708380 ICD Code: E87.1 - HYPO-OSMOLALITY AND HYPONATREMIA Status: Acute Current Visit: Yes (6) Palliative care status SNOMED Code(s): 002408823 ICD Code: Z51.5 - ENCOUNTER FOR PALLIATIVE CARE Status: Acute Current Visit: Yes (7) Obesity SNOMED Code(s): 451019711 ICD Code: E66.9 - OBESITY, UNSPECIFIED Status: Chronic Current Visit: Yes Qualifiers: Obesity type: due to excess calories (8) Chronic renal failure SNOMED Code(s): 85719309 ICD Code: N18.9 - CHRONIC KIDNEY DISEASE, UNSPECIFIED Status: Acute Current Visit: Yes - Patient Instructions Diet: Heart Healthy Diet Activity: Bedrest Driving: Do Not Drive Showering/Bathing: May Shower Other/Special Instructions: 1. Transfer to [facility] ambulance. Dr. Habib receiving. - Discharge Plan Prescriptions/Med Rec: Spironolactone [Aldactone] 25 mg PO BID #30 tablet Home Medications: Home Meds Finasteride 5 mg PO DAILY 10/07/15 [History] Loratadine 10 mg PO DAILY 10/07/15 [History] Sawyer-3 Acid Ethyl Esters 1 gm PO DAILY 10/07/15 [History] Oxybutynin 5 mg PO BIDMEALS 10/07/15 [History] Simvastatin [Zocor] 40 mg PO WITHDINNER 10/07/15 [History] Tamsulosin [Flomax] 0.4 mg PO PCDINNER 10/07/15 [History] glipiZIDE [Glucotrol] 5 mg PO BIDMEALS 10/07/15 [History] Oxymetazoline [Afrin Original 0.05% Nasal [place]] 2 - 3 spray NASBOTH Q12H PRN [History] Aspirin [Halfprin] 81 mg PO DAILY 06/14/17 [History] Ketorolac [Acular LS 0.4% Ophth Soln] 1 drop EYELF QID 06/14/17 [History] Multivitamin [Daily Gonzalo] 1 tab PO DAILY 06/14/17 [History] Oxybutynin 5 mg PO DAILY PRN 06/14/17 [History] Phenylephrine [Rell-Synephrine 0.5% Regular Nasal [place]] 2 - 3 sprays NASBOTH Q4H PRN 06/14/17 [History] diphenhydrAMINE HCl [Benadryl] 25 mg PO QID PRN 06/14/17 [History] Spironolactone [Aldactone] 25 mg PO BID #30 tablet 06/16/17 [Rx] Albuterol/Ipratropium [DuoNeb 3.0-0.5 MG/3 ML] 3 ml NEB Q4H PRN #1 neb 06/22/17 [Rx] Albuterol/Ipratropium [DuoNeb 3.0-0.5 MG/3 ML] 3 ml NEB QIDRT neb 06/22/17 [Rx] Aspirin [Halfprin] 81 mg PO DAILY tab.ec 06/22/17 [Rx] Benzonatate [Tessalon Perles] 200 mg PO BID cap 06/22/17 [Rx] Enoxaparin [Lovenox] 30 mg SUBCUT DAILY syringe 06/22/17 [Rx] Insulin Aspart [NovoLOG] 0 unit SUBCUT TIDMEALS pen 06/22/17 [Rx] Ketorolac Tromethamine/Pf [Acuvail 0.45% Ophth Solution] 1 drop EYELF QID [Rx] Oxybutynin 5 mg PO BID tablet 06/22/17 [Rx] Polyethylene Glycol 3350 [MiraLAX] 17 gm PO DAILY packet 06/22/17 [Rx] metroNIDAZOLE/Normal Saline [Flagyl 500 MG in NS 100 ML] 500 mg IV Q8H bag [Rx] Forms: ED Department Discharge Referrals: PCP,Unknown [Ordering Only Provider] - ([facility]) - Patient Data Vitals - Most Recent: Last Vital Signs Temp 97.5 F 06/22/17 05:00 Pulse 70 06/22/17 07:33 Resp 22 H 06/22/17 05:00 BP 106/38 L 06/22/17 05:00 Pulse Ox 88 L 06/22/17 07:27 Weight - Most Recent: 272 lb 6.4 oz I&O - Last 24 hours: Intake & Output 06/21/17 06/22/17 06/22/17 22:59 06:59 14:59 Intake Total 738 587 Output Total 0 Balance 738 587 Lab Results - Last 24 hrs: Laboratory Results - last 24 hr 06/21/17 06/21/17 06/21/17 Range/Units 10:43 12:20 17:37 WBC (4.5-12.0) X10-3/uL RBC (4.30-5.75) x10(6)uL Hgb (11.5-15.5) g/dL Hct (30.0-51.3) % MCV (80-96) fL MCH (27.7-33.6) pg MCHC (32.2-35.4) g/dL RDW (11.5-15.5) % Plt Count (125-369) X10(3)uL MPV (7.4-10.4) fL Add Manual Diff Neutrophils % (Manual) (46-82) % Lymphocytes % (Manual) (13-37) % Monocytes % (Manual) (4-12) % Eosinophils % (Manual) (0-5) % Sodium (135-145) mmol/L Potassium (3.5-5.3) mmol/L Chloride (100-110) mmol/L Carbon Dioxide (23-29) mmol/L BUN (8-23) mg/dL Creatinine (0.6-1.3) mg/dL Est Cr Clr Drug Dosing mL/min Estimated GFR (MDRD) (>60) BUN/Creatinine Ratio (9-20) Glucose (80-116) mg/dL POC Glucose 220 H D 73 L D (80-116) mg/dL Calcium (8.6-10.2) mg/dL Total Bilirubin (0.1-1.3) mg/dL AST (5-27) IU/L ALT (14-26) IU/L Alkaline Phosphatase (56-112) IU/L Total Protein (6.0-8.0) g/dL Albumin (3.2-4.6) g/dL Globulin g/dL Albumin/Globulin Ratio Urine Color Yellow (YELLOW) Urine Appearance Slightly cloudy (CLEAR) Urine pH 5.0 (5.0-6.5) Ur Specific [place] 1.015 (1.010-1.025) Urine Protein Negative (NEGATIVE) mg/dL Urine Glucose (UA) Normal (NEGATIVE) mg/dL Urine Ketones Negative (NEGATIVE) mg/dL Urine Occult Blood Negative (NEGATIVE) Urine Nitrite Negative (NEGATIVE) Urine Bilirubin Negative (NEGATIVE) Urine Urobilinogen Normal (NEGATIVE) mg/dL Ur Leukocyte Esterase Negative (NEGATIVE) Urine WBC 0-5 (0) Ur Squamous Epith Cells Few H (NS,R,O) Urine Bacteria Few H (NS) 06/22/17 06/22/17 06/22/17 Range/Units 06:30 06:30 06:35 WBC 15.8 H (4.5-12.0) X10-3/uL RBC 3.98 L (4.30-5.75) x10(6)uL Hgb 11.5 (11.5-15.5) g/dL Hct 34.5 (30.0-51.3) % MCV 86.7 (80-96) fL MCH 29.0 (27.7-33.6) pg MCHC 33.4 (32.2-35.4) g/dL RDW 14.4 (11.5-15.5) % Plt Count 223 (125-369) X10(3)uL MPV 7.8 (7.4-10.4) fL Add Manual Diff Yes Neutrophils % (Manual) 86 H (46-82) % Lymphocytes % (Manual) 6 L (13-37) % Monocytes % (Manual) 7 (4-12) % Eosinophils % (Manual) 1 (0-5) % Sodium 124 L (135-145) mmol/L Potassium 5.9 H (3.5-5.3) mmol/L Chloride 89 L* (100-110) mmol/L Carbon Dioxide 22 L (23-29) mmol/L BUN 72 H D (8-23) mg/dL Creatinine 3.0 H* (0.6-1.3) mg/dL Est Cr Clr Drug Dosing 15.91 mL/min Estimated GFR (MDRD) 20 L (>60) BUN/Creatinine Ratio 24.0 H (9-20) Glucose 52 L (80-116) mg/dL POC Glucose 48 L (80-116) mg/dL Calcium 8.1 L (8.6-10.2) mg/dL Total Bilirubin 0.5 (0.1-1.3) mg/dL AST 47 H D (5-27) IU/L ALT 40 H D (14-26) IU/L Alkaline Phosphatase 69 (56-112) IU/L Total Protein 6.5 (6.0-8.0) g/dL Albumin 2.7 L (3.2-4.6) g/dL Globulin 3.8 g/dL Albumin/Globulin Ratio 0.7 Urine Color (YELLOW) Urine Appearance (CLEAR) Urine pH (5.0-6.5) Ur Specific [place] (1.010-1.025) Urine Protein (NEGATIVE) mg/dL Urine Glucose (UA) (NEGATIVE) mg/dL Urine Ketones (NEGATIVE) mg/dL Urine Occult Blood (NEGATIVE) Urine Nitrite (NEGATIVE) Urine Bilirubin (NEGATIVE) Urine Urobilinogen (NEGATIVE) mg/dL Ur Leukocyte Esterase (NEGATIVE) Urine WBC (0) Ur Squamous Epith Cells (NS,R,O) Urine Bacteria (NS) 06/22/17 Range/Units 07:03 WBC (4.5-12.0) X10-3/uL RBC (4.30-5.75) x10(6)uL Hgb (11.5-15.5) g/dL Hct (30.0-51.3) % MCV (80-96) fL MCH (27.7-33.6) pg MCHC (32.2-35.4) g/dL RDW (11.5-15.5) % Plt Count (125-369) X10(3)uL MPV (7.4-10.4) fL Add Manual Diff Neutrophils % (Manual) (46-82) % Lymphocytes % (Manual) (13-37) % Monocytes % (Manual) (4-12) % Eosinophils % (Manual) (0-5) % Sodium (135-145) mmol/L Potassium (3.5-5.3) mmol/L Chloride (100-110) mmol/L Carbon Dioxide (23-29) mmol/L BUN (8-23) mg/dL Creatinine (0.6-1.3) mg/dL Est Cr Clr Drug Dosing mL/min Estimated GFR (MDRD) (>60) BUN/Creatinine Ratio (9-20) Glucose (80-116) mg/dL POC Glucose 64 L (80-116) mg/dL Calcium (8.6-10.2) mg/dL Total Bilirubin (0.1-1.3) mg/dL AST (5-27) IU/L ALT (14-26) IU/L Alkaline Phosphatase (56-112) IU/L Total Protein (6.0-8.0) g/dL Albumin (3.2-4.6) g/dL Globulin g/dL Albumin/Globulin Ratio Urine Color (YELLOW) Urine Appearance (CLEAR) Urine pH (5.0-6.5) Ur Specific [place] (1.010-1.025) Urine Protein (NEGATIVE) mg/dL Urine Glucose (UA) (NEGATIVE) mg/dL Urine Ketones (NEGATIVE) mg/dL Urine Occult Blood (NEGATIVE) Urine Nitrite (NEGATIVE) Urine Bilirubin (NEGATIVE) Urine Urobilinogen (NEGATIVE) mg/dL Ur Leukocyte Esterase (NEGATIVE) Urine WBC (0) Ur Squamous Epith Cells (NS,R,O) Urine Bacteria (NS) NILSON Results - Last 24 hrs: Microbiology 06/20/17 07:50 Aerobic Blood Culture - Preliminary Blood - Venous - Lab Draw NO GROWTH AFTER 2 DAYS Anaerobic Blood Culture - Final 06/20/17 07:45 Aerobic Blood Culture - Preliminary Blood - Venous NO GROWTH AFTER 2 DAYS Anaerobic Blood Culture - Preliminary NO GROWTH AFTER 2 DAYS Med Orders - Current: Current Medications Albuterol/Ipratropium (Duoneb 3.0-0.5 Mg/3 Ml) 3 ml NEB QIDRT [facility] Last Admin: 06/22/17 07:27 Dose: 3 ml Albuterol/Ipratropium (Duoneb 3.0-0.5 Mg/3 Ml) 3 ml NEB Q4H PRN PRN Reason: Dyspnea Last Admin: 06/21/17 00:38 Dose: 3 ml Aspirin (Halfprin) 81 mg PO DAILY [facility] Last Admin: 06/21/17 08:28 Dose: 81 mg Benzonatate (Tessalon Perles) 200 mg PO BID [facility] Last Admin: 06/21/17 20:19 Dose: 200 mg Bisacodyl (Dulcolax) 10 mg RECTAL DAILY PRN PRN Reason: Constipation Dibucaine (Nupercainal 1% Oint) 1 gm .XX QID PRN PRN Reason: Pain Diphenhydramine HCl (Benadryl) 25 mg PO QID PRN PRN Reason: Allergies Enoxaparin Sodium (Lovenox) 30 mg SUBCUT DAILY [facility] Last Admin: 06/21/17 08:30 Dose: 30 mg Finasteride (Proscar) 5 mg PO DAILY [facility] Last Admin: 06/21/17 08:32 Dose: 5 mg Fish Oil (Fish Oil) 1 gm PO DAILY [facility] Last Admin: 06/21/17 08:28 Dose: 1 gm Metronidazole 500 mg/ Premix 100 mls @ 100 mls/hr IV Q8H [facility] Last Admin: 06/22/17 00:36 Dose: 100 mls/hr Sodium Chloride (Normal Saline) 250 mls @ 100 mls/hr IV ASDIRECTED [facility] Last Admin: 06/20/17 09:30 Dose: 100 mls/hr Sodium Chloride (Normal Saline) 1,000 mls @ 70 mls/hr IV ASDIRECTED [facility] Last Admin: 06/22/17 05:25 Dose: 70 mls/hr Insulin Aspart (Novolog) 0 unit SUBCUT TIDMEALS [facility] PRN Reason: Protocol Last Admin: 06/22/17 07:34 Dose: Not Given Loratadine (Claritin) 10 mg PO DAILY [facility] Last Admin: 06/21/17 08:28 Dose: 10 mg Magnesium Hydroxide (Milk Of Magnesia) 30 ml PO DAILY PRN PRN Reason: Constipation Last Admin: 06/19/17 12:45 Dose: 30 ml Multivitamins/Minerals/Vitamin C (Tab-A-Gonzalo) 1 tab PO DAILY@0800 [facility] Last Admin: 06/21/17 08:27 Dose: 1 tab Ketorolac 0.4% Ophthalmic Solution *Ptom 1 drop EYELF QID [facility] Last Admin: 06/21/17 20:17 Dose: 1 drop Ondansetron HCl (Zofran) 4 mg IV Q4H PRN PRN Reason: Nausea/Vomiting Last Admin: 06/21/17 13:42 Dose: 4 mg Oxybutynin Chloride (Oxybutynin) 5 mg PO BID [facility] Last Admin: 06/21/17 20:19 Dose: 5 mg Oxybutynin Chloride (Oxybutynin) 5 mg PO DAILY PRN PRN Reason: BLADDER SPASMS Oxymetazoline HCl (Afrin Original 0.05% Nasal [place]) 0 ml NASBOTH Q12H PRN PRN Reason: CONGESTION Phenyleph/Shark Oil/Min Oil/Petrol (Preparation H Oint) 0 gm RECTAL QID PRN PRN Reason: HEMMORRHOIDS Last Admin: 06/21/17 18:56 Dose: 1 applic Polyethylene Glycol (Miralax) 17 gm PO DAILY [facility] Last Admin: 06/21/17 17:48 Dose: 17 gm Simvastatin (Zocor) 40 mg PO BEDTIME [facility] Last Admin: 06/21/17 20:20 Dose: 40 mg Sodium Chloride (Saline Flush) 10 ml FLUSH ASDIRECTED PRN PRN Reason: Keep Vein Open Last Admin: 06/20/17 18:33 Dose: 10 ml Sodium Chloride (Sodium Chloride) 1 gm PO TID [facility] Last Admin: 06/21/17 20:19 Dose: 1 gm Sodium Chloride (Saline Flush) 10 ml FLUSH ASDIRECTED PRN PRN Reason: Keep Vein Open Spironolactone (Aldactone) 25 mg PO BID [facility] Last Admin: 06/21/17 20:17 Dose: 25 mg Tamsulosin HCl (Flomax) 0.4 mg PO PCDINNER [facility] Last Admin: 06/21/17 18:58 Dose: 0.4 mg Discontinued Medications Albuterol/Ipratropium (Duoneb 3.0-0.5 Mg/3 Ml) 3 ml NEB ONETIME ONE Stop: 06/13/17 19:00 Last Admin: 06/13/17 19:05 Dose: 3 ml Furosemide (Lasix) 40 mg IVPUSH NOW ONE Stop: 06/13/17 18:30 Last Admin: 06/13/17 18:34 Dose: 40 mg Furosemide (Lasix) 20 mg PO BIDDIURETIC COLT Last Admin: 06/14/17 12:14 Dose: Not Given Furosemide (Lasix) 20 mg IVPUSH BIDDIURETIC COLT Last Admin: 06/17/17 11:52 Dose: Not Given Furosemide (Lasix) 40 mg IVPUSH BIDDIURETIC COLT Last Admin: 06/20/17 09:32 Dose: 40 mg Furosemide (Lasix) 40 mg PO BIDDIURETIC COLT Last Admin: 06/21/17 11:20 Dose: Not Given Furosemide (Lasix) 40 mg IVPUSH NOW ONE Stop: 06/22/17 08:25 Glipizide (Glucotrol) 5 mg PO BIDMEALS [facility] Last Admin: 06/21/17 17:49 Dose: 5 mg Ketorolac Tromethamine (Toradol) 15 mg IVPUSH ONETIME ONE Stop: 06/21/17 02:50 Last Admin: 06/21/17 03:11 Dose: 15 mg Levofloxacin (Levaquin) 500 mg PO Q24H COLT Stop: 06/20/17 09:55 Last Admin: 06/19/17 10:29 Dose: 500 mg Levofloxacin (Levaquin) 250 mg PO Q24H [facility] Last Admin: 06/21/17 11:00 Dose: 250 mg Lisinopril (Prinivil) 10 mg PO DAILY [facility] Last Admin: 06/20/17 09:12 Dose: 10 mg Lisinopril (Prinivil) 2.5 mg PO DAILY COLT Metolazone (Zaroxolyn) 5 mg PO ONETIME ONE Stop: 06/17/17 08:21 Last Admin: 06/17/17 09:24 Dose: 5 mg Metolazone (Zaroxolyn) 5 mg PO ONETIME ONE Stop: 06/18/17 08:57 Last Admin: 06/18/17 10:00 Dose: Not Given Metolazone (Zaroxolyn) 5 mg PO ONETIME ONE Stop: 06/18/17 10:16 Metolazone (Zaroxolyn) 5 mg PO ONETIME ONE Stop: 06/18/17 13:01 Last Admin: 06/18/17 13:09 Dose: 5 mg Oxybutynin Chloride (Oxybutynin) 5 mg PO TID PRN PRN Reason: BLADDER Spasms Polyethylene Glycol (Miralax) 17 gm PO BID [facility] Last Admin: 06/21/17 20:18 Dose: 17 gm Potassium Chloride (Klor-Con M20) 20 meq PO BEDTIME [facility] Last Admin: 06/21/17 20:18 Dose: 20 meq Sodium Chloride (Saline Flush) 10 ml FLUSH ASDIRECTED PRN PRN Reason: flush med Spironolactone (Aldactone) 12.5 mg PO BID [facility] Last Admin: 06/15/17 08:20 Dose: 12.5 mg Spironolactone (Aldactone) 25 mg PO DAILY [facility] Spironolactone (Aldactone) 12.5 mg PO ONETIME ONE Stop: 06/15/17 09:31 Last Admin: 06/15/17 14:37 Dose: 12.5 mg *Q Meaningful Use (DIS) - VTE *Q VTE Criteria *Q: - Stroke *Q Stroke Criteria *Q: - AMI *Q AMI Criteria *Q:
[2017-06-22] MEDS: Enoxaparin 30 MG/0.3 ML Syringe SUBCUT SCH (09:21)
[2017-06-22] MEDS: Finasteride 5 MG Tab PO SCH (09:22)
[2017-06-22] MEDS: Sodium Chloride 1 GM Tab PO SCH (09:22)
[2017-06-22] MEDS: Fish Oil/Omega-3 Fatty Acids 1 Gm Cap PO SCH (09:22)
[2017-06-22] MEDS: Benzonatate 100 MG Cap PO SCH (09:23)
[2017-06-22] MEDS: Oxybutynin 5 MG Tab PO SCH (09:23)
[2017-06-22] MEDS: Multivitamin Tab PO SCH (09:23)
[2017-06-22] MEDS: Spironolactone 25 MG Tab PO SCH (09:23)
[2017-06-22] MEDS: Loratadine 10 MG Tab PO SCH (09:23)
[2017-06-22] MEDS: Aspirin 81 MG Tab.EC PO SCH (09:23)
[2017-06-22] MEDS: KETOROLAC 0.4% EYELF SCH (09:24)
[2017-06-22] MEDS: Polyethylene Glycol 3350 Powder 17 GM Packet PO SCH (09:46)
[2017-06-22 10:34] VITALS: BP 111/56
== END 2017-06-22 11:05 | DRG 291 ==
LOC: FB.ED 17:07 → FB.MS 19:54 → OBSVTOIN 06-14 08:57
PROVIDERS: ADMIT Family Medicine; ATTEND Family Medicine
DX: I11.0 Hypertensive heart disease with heart failure (principal); J69.0 Pneumonitis due to inhalation of food and vomit; E87.1 Hypo-osmolality and hyponatremia; E78.00 Pure hypercholesterolemia, unspecified; N40.1 Benign prostatic hyperplasia with lower urinary tract symptoms; N39.498 Other specified urinary incontinence; N17.9 Acute kidney failure, unspecified; T17.800A Unspecified foreign body in other parts of respiratory tract causing asphyxiation, initial encounter; Z87.891 Personal history of nicotine dependence; Z88.0 Allergy status to penicillin; Z88.7 Allergy status to serum and vaccine; Z79.82 Long term (current) use of aspirin; Z79.899 Other long term (current) drug therapy; I50.40 Unspecified combined systolic (congestive) and diastolic (congestive) heart failure; J45.909 Unspecified asthma, uncomplicated; E11.9 Type 2 diabetes mellitus without complications; Z79.84 Long term (current) use of oral hypoglycemic drugs; E66.9 Obesity, unspecified; Z51.5 Encounter for palliative care; Z95.0 Presence of cardiac pacemaker
CPT/HCPCS: 36410; 36415 ×2; 71010; 80048; 83880 ×2; 84484 ×2; 85025; 85379; 85610; 93005; 96374; 99285; G0378 ×2; J1940; J7050; J7620 ×2; 51701; 51798; 71020; 80053; 81001; 82962; 83735; 84100; 87040; 94150; 94640; 94640-76; 97110-GP; 97116-GP; 97161-GP; 97166-GO; 99284; A9270-GY; J1650; J1885; J2405; J7040